=== PATIENT | female | born 1970 | race Caucasian/White ===

== ENCOUNTER → 2020-01-10 10:39 | Outpatient (BNVA) | payer OTHER, SELFPAY | PROVIDERS: PCP Nurse Practitioner Family; Visit Provider Surgery | DX: Z01.89 Encounter for other specified special examinations (principal) | CPT/HCPCS: 99211 ==

== ENCOUNTER → 2020-01-17 08:49 | Outpatient (BNVA) | payer OTHER, SELFPAY | PROVIDERS: PCP Nurse Practitioner Family; Referring Provider Nurse Practitioner Family; Visit Provider Physician Assistant | DX: E66.9 Obesity, unspecified (principal); Z68.33 Body mass index [BMI] 33.0-33.9, adult; Z98.84 Bariatric surgery status | CPT/HCPCS: 99214 ==

== ENCOUNTER 2020-01-18 12:47 | Outpatient (REF) | payer OTHER, SELFPAY ==
[2020-01-18 13:28] LABS: MANUAL DIFF FLAG NO
[2020-01-18 13:35] LABS: Basophils Percent Auto 0.6 % (0-2); Eosinophils Absolute Auto 0.1 X10*3/uL (0.0-0.4); Eosinophils Percent Auto 0.9 % (0-4); Hemoglobin 10.2 g/dl (12.0-16.0); Imm Gran Abs Auto 0.01 X10*3/uL (0.00-0.03); Imm Gran Pct Auto 0.2 % (0.0-0.4); Lymphocytes Absolute Auto 1.5 X10*3/uL (1.2-4.9); Lymphocytes Percent Auto 22.6 % (20-40); Mean Corpuscular HGB Conc 30.9 g/dl (31.0-35.0); Mean Corpuscular Hemoglobin 27.1 pg (27.0-33.0); Mean Corpuscular Volume 87.8 fL (80-98); Mean Platelet Volume 10.8 fL (9.4-12.3); Monocytes Absolute Auto 0.4 X10*3/uL (0.1-1.2); Monocytes Percent Auto 6.5 % (2-11); Neutrophils Absolute Auto 4.6 X10*3/uL (2.0-8.3); Neutrophils Percent Auto 69.2 % (45-73); Platelet Count 299 X10*3/uL (160-400); Red Blood Count 3.76 X10*6/uL (4.20-5.50); Red Cell Distribution Width 14.1 % (11.0-16.0); White Blood Count 6.6 X10*3/uL (4.8-10.8)
[2020-01-18 14:02] LABS: C Reactive Protein 0.13 mg/dL (< or = 0.50); Cholesterol 200 mg/dL; HDL Cholesterol 55 mg/dL; Iron 53 mcg/dL (30-160); LDL Cholesterol Calculated 128 mg/dl; Percent Iron Saturation 13 % (15-50); Total Iron Binding Capacity 393 mcg/dL (228-428); Triglycerides 88 mg/dL; Unsaturated Iron Binding 340 ug/dL
[2020-01-18 14:17] LABS: Ferritin 6 ng/mL (10-250); TSH reflex Free T4 1.34 mIU/mL (0.32-4.0); Vitamin D 25-OH Total 24.6 ng/mL (>30)
[2020-01-18 14:23] LABS: Estimated Average Glucose 108 mg/dL; Hemoglobin A1c % 5.4 %
[2020-01-18 16:12] LABS: Folate 13.2 ng/mL (> or = 4.0); Vitamin B12 295 pg/mL (200-900)
[2020-01-20 15:26] LABS: Zinc 52 mcg/dL (60-130)
[2020-01-22 12:42] LABS: Insulin Level Total 12.4 uIU/mL
[2020-01-22 14:41] LABS: Vitamin B1 15 nmol/L (8-30)
[2020-01-23 12:06] LABS: Vitamin A 46 mcg/dL (38-98)
== END 2020-01-18 12:48 | disposition home or self-care (01) ==
LOC: HO.LAB 12:47
PROVIDERS: PCP Nurse Practitioner Family; Visit Provider Physician Assistant
DX: E66.9 Obesity, unspecified (principal); Z98.84 Bariatric surgery status
CPT/HCPCS: 36415; 80061; 82306; 82607; 82728; 82746; 83036; 83525; 83540; 84425; 84443; 84590; 84630; 85025; 86140

== ENCOUNTER → 2020-01-31 08:29 | Outpatient (BNVA) | payer OTHER, SELFPAY | PROVIDERS: PCP Nurse Practitioner Family; Visit Provider Physician Assistant | DX: E66.9 Obesity, unspecified (principal); Z68.31 Body mass index [BMI] 31.0-31.9, adult; Z98.84 Bariatric surgery status | CPT/HCPCS: 99212 ==

== ENCOUNTER → 2020-03-08 08:38 | Outpatient (BNVA) | payer OTHER, SELFPAY | PROVIDERS: PCP Nurse Practitioner Family; Referring Provider Nurse Practitioner Family; Visit Provider Physician Assistant | DX: Z76.89 Persons encountering health services in other specified circumstances (principal) ==

== ENCOUNTER 2020-03-15 14:47 | Outpatient (REF) | payer OTHER, SELFPAY ==
--- NOTE | 2020-03-15 14:50 | XR_ITS ---
EXAMINATION: XR FOOT, LEFT CLINICAL INFORMATION: Pain in left foot. COMPARISON: None TECHNIQUE: AP, lateral, and oblique views of the left foot. FINDINGS: Bones have normal alignment throughout the foot. No fracture or subluxation. At the great toe metatarsophalangeal joint, there is mild narrowing of the joint space and minimal osteophyte formation. No erosions or periostitis. XR/XR foot LT min 3V IMPRESSION: * No evidence of metatarsal stress fracture. 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
== END 2020-03-15 14:48 | disposition home or self-care (01) ==
LOC: HO.HMGCX 14:47
PROVIDERS: PCP Nurse Practitioner Family; Visit Provider Hospitalist
DX: M79.672 Pain in left foot (principal)
CPT/HCPCS: 73630

== ENCOUNTER → 2020-03-19 08:09 | Outpatient (BNVA) | payer OTHER, SELFPAY | PROVIDERS: PCP Nurse Practitioner Family; Visit Provider Dietitian, Registered | DX: Z76.89 Persons encountering health services in other specified circumstances (principal) ==

== ENCOUNTER → 2020-04-02 08:18 | Outpatient (BNVA) | payer OTHER, SELFPAY | PROVIDERS: PCP Nurse Practitioner Family; Visit Provider Dietitian, Registered | DX: Z76.89 Persons encountering health services in other specified circumstances (principal) ==

== ENCOUNTER 2020-05-08 16:45 | Outpatient (REF) | payer OTHER, SELFPAY ==
--- NOTE | ~2020-05-08 | MR_ITS ---
EXAMINATION: MR LUMBAR SPINE WITHOUT CONTRAST CLINICAL INFORMATION: Radiculopathy. Left lower extremity pain and weakness. COMPARISON: CT scan of the abdomen and pelvis 12/03/2018. TECHNIQUE: MRI of the lumbar spine was obtained using routine sequences without contrast. FINDINGS: There are type I degenerative endplate changes at L3-L4. Type II degenerative endplate changes at L4-L5 and to a lesser extent at L5-S1. There is loss of intervertebral disc height and T2 signal intensity at multiple levels related to disc degeneration. That tip of the conus medullaris is located at L2. No mass effect on the conus. Visualized distal cord signal intensity is normal. At L1-L2 there is a slightly bulging disc. No canal stenosis. No mass effect on the traversing or foraminal nerve roots. At L2-L3 there is a slightly bulging disc. No canal stenosis. No mass effect on the traversing or foraminal nerve roots. At L3-L4 there is a diffusely bulging disc. Bilateral facet degenerative change. No canal stenosis. No mass effect on the traversing or foraminal nerve roots. At L4-L5 there is a slightly bulging disc. No canal stenosis. No mass effect on traversing or foraminal nerve roots. At L5-S1 there is a shallow right subarticular protrusion superimposed upon a bulging disc. Bilateral facet degenerative change. No canal stenosis. There is subtle abutment on the right traversing S1 nerve roots. No foraminal nerve root compression. Limited visualization of the retroperitoneal anatomy reveals no abnormal finding. Psoas and paraspinal muscle groups are symmetric. MR/MR lumbar spine wo con IMPRESSION: Multilevel degenerative spondylosis of the lumbar spine. A shallow right subarticular protrusion at L5-S1 causes subtle abutment on the right traversing S1 nerve roots. Otherwise no substantial mass effect on traversing or foraminal nerve roots elsewhere within the lumbar spine. No canal stenosis.
== END 2020-05-08 16:46 | disposition home or self-care (01) ==
LOC: HO.MRI 16:45
PROVIDERS: Visit Provider Nurse Practitioner Family
DX: M54.16 Radiculopathy, lumbar region (principal)
CPT/HCPCS: 72148

== ENCOUNTER 2020-08-08 11:58 | Outpatient (REF) | payer OTHER, SELFPAY | END 2020-08-08 11:59 | disposition home or self-care (01) | LOC: HO.LAB 11:58 | PROVIDERS: Visit Provider Nurse Practitioner Family | DX: Z20.822 Contact with and (suspected) exposure to COVID-19 (principal); J02.9 Acute pharyngitis, unspecified | CPT/HCPCS: 87071; 87880; U0003; U0005 ==

== ENCOUNTER 2020-08-13 11:06 | Outpatient (REF) | payer OTHER, SELFPAY ==
[2020-08-14 07:52] LABS: SARS COV2 IgG Negative (Negative)
== END 2020-08-13 11:07 | disposition home or self-care (01) ==
LOC: HO.HMGCLDS 11:06
PROVIDERS: Nurse Practitioner Family; PCP Nurse Practitioner Family; Visit Provider Nurse Practitioner Family
DX: J36 Peritonsillar abscess (principal); J02.9 Acute pharyngitis, unspecified
CPT/HCPCS: 36415; 86769

== ENCOUNTER → 2020-08-27 11:06 | Outpatient (BNVA) | payer OTHER, SELFPAY | PROVIDERS: Visit Provider Obstetrics & Gynecology ==

== ENCOUNTER 2020-09-30 11:01 | Outpatient (REF) | payer OTHER, SELFPAY ==
--- NOTE | ~2020-09-30 | MM_ITS ---
EXAMINATION: MM SCREENING DIGITAL BREAST TOMOSYNTHESIS, BILATERAL CLINICAL INFORMATION: Screening. Asymptomatic. The lifetime risk of breast cancer based on the Tyrer-Cuzick Model is 8.7%. COMPARISON: Mammography: 07/18/2018 and studies dating back to 12/19/2015 TECHNIQUE: Digital breast tomosynthesis is performed in both the craniocaudal and mediolateral oblique views along with computer-aided detection (CAD). Synthesized 2-D images are generated from the tomosynthesis. FINDINGS: The breasts are heterogeneously dense, which may obscure small masses (ACR BI-RADS breast composition Category c). No new abnormal dominant mass or suspicious grouping of microcalcifications identified. About the inferior aspect of the left breast, there appears to be some skin thickening which may be postoperative in nature or related to inflammatory process. Clinical correlation is suggested. MM/MM tomosynthesis screening BI IMPRESSION: No abnormal dominant mass or suspicious grouping of microcalcifications. There appears to be some skin thickening about the inferior aspect of the left breast for which clinical correlation is suggested. ASSESSMENT: BI-RADS 2: Benign. RECOMMENDATION: Yearly mammography. Clinical correlation of question left skin thickening inferiorly. This patient's information was entered into a reminder system with a target due date for their next mammogram.
== END 2020-09-30 11:02 | disposition home or self-care (01) ==
LOC: HO.MAMMO 11:01
PROVIDERS: Visit Provider Obstetrics & Gynecology
DX: Z12.31 Encounter for screening mammogram for malignant neoplasm of breast (principal)
CPT/HCPCS: 77063; 77067

== ENCOUNTER 2020-10-19 19:50 | Emergency (ER) | payer OTHER, SELFPAY ==
[2020-10-19 20:02] VITALS: BP 139/71; PULSE 87; RESP 16; TEMP 37.1; O2SAT 97; BMI 35.4
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
[2020-10-19] MEDS: Famotidine/PF 20 MG/2 ML VIAL IVPUSH (20:15)
[2020-10-19] MEDS: methylPREDNISolone Sod Succ 125 MG/2 ML VIAL IVPUSH (20:15)
[2020-10-19] MEDS: diphenhydrAMINE HCL 50 MG/ML VIAL IVPUSH (20:15)
[2020-10-19] MEDS: 0.9 % Sodium Chloride 1,000 ML 999 ML IVCONT (20:17)
[2020-10-19] MEDS: Ketorolac Tromethamine 15 MG/ML VIAL IVPUSH (20:26)
[2020-10-19] MEDS: LORazepam 2 MG/ML VIAL 0.5 MG IVPUSH (21:13)
--- NOTE | 2020-10-19 21:14 | PC.NURSE ---
This RN to bedside to reassess pt. Pt restless on stretcher, reports feeling restless and states it's like I'm having a panic attack. This RN informs pt that this may be caused by the benadryl, this RN notified Soumya ASHRAF who ordered ativan IVP for pt. Pt medicated per JUN. Pt tolerating meds well
[2020-10-19 21:17] VITALS: BP 139/71; PULSE 66; RESP 17; O2SAT 100
[2020-10-19 22:53] VITALS: BP 140/77; PULSE 69; RESP 13; O2SAT 99
[2020-10-20 00:42] VITALS: BP 129/75; PULSE 73; RESP 14; O2SAT 98
--- NOTE | 2020-10-20 00:43 | PC.NURSE ---
pt speaking in complete clear sentences, maintaining airway. Pt requests update from provider on dispo, states my chest feels better! I don't feel so tight Provider to be made aware
== END 2020-10-20 01:25 | disposition home or self-care (01) ==
PROVIDERS: Emergency Provider Internal Medicine; PCP Nurse Practitioner Family
DX: T78.40XA Allergy, unspecified, initial encounter (principal); X58.XXXA Exposure to other specified factors, initial encounter; Z91.013 Allergy to seafood
CPT/HCPCS: 96361; 96374; 96375; 99284; J1200; J1885; J2060; J2930

== ENCOUNTER 2020-12-14 07:52 | Outpatient (REF) | payer OTHER, SELFPAY ==
[2020-12-14 09:09] LABS: Alanine Aminotransferase 13 U/L (0-31); Albumin Level 3.6 g/dL (3.5-5.0); Alkaline Phosphatase 57 U/L (39-117); Anion Gap 9 (12-20); Aspartate Amino Transferase 18 U/L (5-31); Bilirubin Total 0.4 mg/dL (0.0-1.0); Blood Urea Nitrogen 9 mg/dL (9-16); Calcium 8.9 mg/dL (8.4-10.2); Carbon Dioxide 26 mmol/L (22-29); Chloride 108 mmol/L (96-108); Cholesterol 180 mg/dL; Estimated Glomerular Filt Rate > 60; Glucose Fasting 94 mg/dL (60-99); HDL Cholesterol 50 mg/dL; LDL Cholesterol Calculated 113 mg/dl; Potassium 4.2 mmol/L (3.3-5.1); Sodium 139 mmol/L (135-145); Total Protein 6.1 g/dL (6.5-8.0); Triglycerides 86 mg/dL
[2020-12-14 09:29] LABS: TSH reflex Free T4 0.37 uIU/mL (0.32-4.0)
[2020-12-14 09:47] LABS: Appearance Urine CLEAR; Color Urine YELLOW; Glucose Urine UA NEG (NEG); Leukocyte Esterase Urine NEG (NEG); Nitrite Urine NEG (NEG); UACC Culture Trigger NO; Urine Blood 2+ (NEG); Urine Ketones NEG (NEG); Urine Protein NEG (NEG-TRACE)
[2020-12-14 10:22] LABS: Squamous Epithelial Cell Urine 2+ /LPF; WBC Urine 0 /HPF (0-4)
== END 2020-12-14 07:53 | disposition home or self-care (01) ==
LOC: HO.LAB 07:52
PROVIDERS: PCP Nurse Practitioner Family; Visit Provider Nurse Practitioner Family
DX: Z00.00 Encounter for general adult medical examination without abnormal findings (principal)
CPT/HCPCS: 36415; 80053; 80061; 81001; 84443

== ENCOUNTER 2021-03-26 12:51 | Outpatient (REF) | payer OTHER, SELFPAY | END 2021-03-26 12:52 | disposition home or self-care (01) | LOC: HO.HMGCLDS 12:51 | PROVIDERS: Visit Provider Internal Medicine | DX: Z20.822 Contact with and (suspected) exposure to COVID-19 (principal) | CPT/HCPCS: C9803; U0003; U0005 ==

== ENCOUNTER 2021-05-27 11:06 | Outpatient (REF) | payer OTHER, SELFPAY ==
[2021-05-27 13:51] LABS: Appearance Urine CLEAR; Color Urine YELLOW; Glucose Urine UA NEG (NEG); Leukocyte Esterase Urine NEG (NEG); Nitrite Urine NEG (NEG); Specific Gravity - Urine 1.025 (1.005-1.025); Urine Blood NEG (NEG); Urine Ketones NEG (NEG); Urine Protein NEG (NEG-TRACE)
[2021-05-27 13:54] LABS: Hematocrit 39.6 % (37.0-47.0); Hemoglobin 12.8 g/dl (12.0-16.0); Mean Corpuscular HGB Conc 32.3 g/dl (31.0-35.0); Mean Corpuscular Volume 92.7 fL (80.0-98.0); Mean Platelet Volume 11.2 fL (9.4-12.3); Platelet Count 258 X10*3/uL (160-400); Red Blood Count 4.27 X10*6/uL (4.20-5.50); Red Cell Distribution Width 13.4 % (11.0-16.0); White Blood Count 4.3 X10*3/uL (4.8-10.8)
[2021-05-27 14:04] LABS: Alanine Aminotransferase 15 U/L (0-31); Alkaline Phosphatase 68 U/L (39-117); Anion Gap 10 (12-20); Aspartate Amino Transferase 22 U/L (5-31); Bilirubin Direct < 0.2 mg/dL (0.0-0.5); Bilirubin Total 0.4 mg/dL (0.0-1.0); Blood Urea Nitrogen 11 mg/dL (9-16); Carbon Dioxide 26 mmol/L (22-29); Chloride 104 mmol/L (96-108); Estimated Glomerular Filt Rate > 60; Glucose Random 93 mg/dL (60-115); Potassium 4.2 mmol/L (3.3-5.1); Sodium 136 mmol/L (135-145); Total Protein 7.1 g/dL (6.5-8.0)
[2021-05-27 14:29] LABS: Thyroid Stimulating Hormone 1.95 uIU/mL (0.32-4.0)
[2021-05-27 14:40] LABS: Folate 11.2 ng/mL (> or = 4.0); Vitamin B12 437 pg/mL (200-900)
[2021-05-31 14:24] LABS: Vitamin D 25-OH, D2 <4 ng/mL; Vitamin D 25-OH, D3 28 ng/mL; Vitamin D 25-OH, Total 28 ng/mL (30-100)
== END 2021-05-27 11:07 | disposition home or self-care (01) ==
LOC: HO.HMGCLDS 11:06
PROVIDERS: PCP Nurse Practitioner Family; Visit Provider Internal Medicine
DX: Z00.00 Encounter for general adult medical examination without abnormal findings (principal); R53.83 Other fatigue
CPT/HCPCS: 36415; 80048; 80076; 81003; 82306; 82607; 82746; 84443; 85027

== ENCOUNTER → 2021-06-17 12:14 | Outpatient (BNVA) | payer OTHER, SELFPAY | PROVIDERS: Visit Provider Obstetrics & Gynecology | DX: N76.0 Acute vaginitis (principal); B96.89 Other specified bacterial agents as the cause of diseases classified elsewhere | CPT/HCPCS: Q3014 ==

== ENCOUNTER 2021-07-03 10:26 | Outpatient (REF) | payer OTHER, SELFPAY ==
[2021-07-03 14:03] LABS: MANUAL DIFF FLAG NO
[2021-07-03 14:08] LABS: Basophils Percent Auto 0.5 % (0-2); Eosinophils Absolute Auto 0.3 X10*3/uL (0.0-0.4); Eosinophils Percent Auto 4.9 % (0-4); Hematocrit 37.5 % (37.0-47.0); Hemoglobin 12.5 g/dl (12.0-16.0); Imm Gran Abs Auto 0.02 X10*3/uL (0.00-0.03); Imm Gran Pct Auto 0.3 % (0.0-0.4); Lymphocytes Absolute Auto 1.4 X10*3/uL (1.2-4.9); Lymphocytes Percent Auto 23.5 % (20-40); Mean Corpuscular HGB Conc 33.3 g/dl (31.0-35.0); Mean Corpuscular Hemoglobin 31.5 pg (27.0-33.0); Mean Corpuscular Volume 94.5 fL (80.0-98.0); Mean Platelet Volume 11.3 fL (9.4-12.3); Monocytes Absolute Auto 0.4 X10*3/uL (0.1-1.2); Monocytes Percent Auto 6.4 % (2-11); Neutrophils Absolute Auto 3.9 x10*3/uL (2.0-8.3); Neutrophils Percent Auto 64.4 % (45-73); Platelet Count 248 X10*3/uL (160-400); Red Blood Count 3.97 X10*6/uL (4.20-5.50); Red Cell Distribution Width 13.2 % (11.0-16.0); White Blood Count 6.1 X10*3/uL (4.8-10.8)
[2021-07-03 14:22] LABS: Alanine Aminotransferase 24 U/L (0-31); Albumin Level 3.8 g/dL (3.5-5.0); Alkaline Phosphatase 64 U/L (39-117); Anion Gap 8 (12-20); Aspartate Amino Transferase 20 U/L (5-31); Bilirubin Total 0.6 mg/dL (0.0-1.0); Blood Urea Nitrogen 12 mg/dL (9-16); Calcium 9.1 mg/dL (8.4-10.2); Carbon Dioxide 30 mmol/L (22-29); Chloride 105 mmol/L (96-108); Estimated Glomerular Filt Rate > 60; Glucose Fasting 72 mg/dL (60-99); Sodium 139 mmol/L (135-145); Total Protein 6.9 g/dL (6.5-8.0)
[2021-07-03 14:24] LABS: Appearance Urine CLEAR; Color Urine YELLOW; Glucose Urine UA NEG (NEG); Leukocyte Esterase Urine NEG (NEG); Nitrite Urine NEG (NEG); PH 5.5 (5.0-8.0); Specific Gravity - Urine 1.015 (1.005-1.025); Urine Blood NEG (NEG); Urine Ketones NEG (NEG); Urine Protein NEG (NEG-TRACE)
[2021-07-03 14:43] LABS: Ferritin 24 ng/mL (10-250); TSH reflex Free T4 0.33 uIU/mL (0.32-4.0)
[2021-07-03 14:54] LABS: Folate 10.4 ng/mL (> or = 4.0); Vitamin B12 336 pg/mL (200-900)
[2021-07-04 08:00] LABS: HBsAGNum1 0.18 S/CO (0.00-0.99); HIV AB/AG Nonreactive (Nonreactive); HIV Num 1 0.05 S/CO (0.00-0.99); Hepatitis B Surface Antigen Negative (Negative)
[2021-07-04 08:06] LABS: Syphilis Screen Nonreactive (Nonreactive)
[2021-07-04 08:10] LABS: ~HepC Num1 0.14 S/CO (0.00-0.79); ~Hepatitis C Antibody Nonreactive (Nonreactive)
[2021-07-09 13:47] LABS: Vitamin B6 19.3 ng/mL (2.1-21.7)
== END 2021-07-03 10:27 | disposition home or self-care (01) ==
LOC: HO.HMGCLDS 10:26
PROVIDERS: Obstetrics & Gynecology; PCP Nurse Practitioner Family; Visit Provider Nurse Practitioner Family
DX: Z11.4 Encounter for screening for human immunodeficiency virus [HIV] (principal); R53.83 Other fatigue; M79.10 Myalgia, unspecified site; B96.89 Other specified bacterial agents as the cause of diseases classified elsewhere; N76.0 Acute vaginitis
CPT/HCPCS: 36415; 80053; 81003; 82550; 82607; 82728; 82746; 84207; 84443; 85025; 86780; 86803; 87340; 87389

== ENCOUNTER 2021-09-03 11:42 | Outpatient (REF) | payer OTHER, SELFPAY ==
[2021-09-04 01:54] LABS: CT PCR NOT DETECTED (Not Detect.); NG PCR NOT DETECTED (Not Detect.)
[2021-09-04 11:03] LABS: BV Int Neg Control Negative (Negative); BV Int Pos Control Positive (Positive)
== END 2021-09-03 11:43 | disposition home or self-care (01) ==
LOC: HO.LAB 11:42
PROVIDERS: PCP Nurse Practitioner Family; Visit Provider Obstetrics & Gynecology
DX: Z01.419 Encounter for gynecological examination (general) (routine) without abnormal findings (principal); N93.9 Abnormal uterine and vaginal bleeding, unspecified; F32.A Depression, unspecified; N76.0 Acute vaginitis; B96.89 Other specified bacterial agents as the cause of diseases classified elsewhere
CPT/HCPCS: 87480; 87491; 87510; 87591; 87660

== ENCOUNTER 2021-10-01 10:51 | Outpatient (REF) | payer OTHER, SELFPAY ==
--- NOTE | ~2021-10-01 | MM_ITS ---
EXAMINATION: MM SCREENING DIGITAL BREAST TOMOSYNTHESIS, BILATERAL CLINICAL INFORMATION: Screening. Asymptomatic. The lifetime risk of breast cancer based on the Tyrer-Cuzick Model is 9%. COMPARISON: Mammography: 09/30/2020, 07/18/2018, 07/12/2017 TECHNIQUE: Digital breast tomosynthesis is performed in both the craniocaudal and mediolateral oblique views along with computer-aided detection (CAD). Synthesized 2D images are generated from the tomosynthesis. Additional left CC is provided. FINDINGS: There are scattered areas of fibroglandular density (ACR BI-RADS breast composition Category b). There are no significant masses, abnormal calcifications, or other abnormalities. Parenchymal pattern is similar to prior studies. No developing density. No significant changes. MM/MM tomosynthesis screening BI IMPRESSION: No mammographic evidence of malignancy. ASSESSMENT: BI-RADS 1: Negative RECOMMENDATION: Routine annual mammography screening. This patient's information was entered into a reminder system with a target due date for their next mammogram.
== END 2021-10-01 10:52 | disposition home or self-care (01) ==
LOC: HO.MAMMO 10:51
PROVIDERS: PCP Nurse Practitioner Family; Visit Provider Obstetrics & Gynecology
DX: Z12.31 Encounter for screening mammogram for malignant neoplasm of breast (principal)
CPT/HCPCS: 77063; 77067

== ENCOUNTER 2021-10-01 16:24 | Outpatient (REF) | payer OTHER, SELFPAY ==
[2021-10-01 17:46] LABS: Hematocrit 38.8 % (37.0-47.0); Hemoglobin 12.6 g/dl (12.0-16.0); Mean Corpuscular HGB Conc 32.5 g/dl (31.0-35.0); Mean Corpuscular Hemoglobin 30.6 pg (27.0-33.0); Mean Corpuscular Volume 94.2 fL (80.0-98.0); Platelet Count 269 X10*3/uL (160-400); Red Blood Count 4.12 X10*6/uL (4.20-5.50); Red Cell Distribution Width 12.8 % (11.0-16.0); White Blood Count 6.5 X10*3/uL (4.8-10.8)
[2021-10-01 18:40] LABS: HCG Quantitative 7 mIU/mL; TSH reflex Free T4 3.52 uIU/mL (0.32-4.0)
[2021-10-01 18:48] LABS: Syphilis Screen Nonreactive (Nonreactive)
[2021-10-02 08:54] LABS: HBsAGNum1 0.28 S/CO (0.00-0.99); HIV AB/AG Nonreactive (Nonreactive); HIV Num 1 0.09 S/CO (0.00-0.99); Hepatitis B Surface Antigen Negative (Negative); ~HepC Num1 0.09 S/CO (0.00-0.79); ~Hepatitis C Antibody Nonreactive (Nonreactive)
[2021-10-03 02:17] LABS: Follicle Stimulating Hormone 72.9 mIU/mL; Lutenizing Hormone 37.5 mIU/mL
[2021-10-03 14:42] LABS: Immunoglobulin A 456 mg/dL (47-310)
[2021-10-03 15:36] LABS: Transglutaminase Ab IgG <1.0 U/mL; Transglutaminase IgA <1.0 U/mL
== END 2021-10-01 16:25 | disposition home or self-care (01) ==
LOC: HO.LAB 16:24
PROVIDERS: PCP Nurse Practitioner Family; Referring Provider Nurse Practitioner Family; Visit Provider Obstetrics & Gynecology
DX: Z11.4 Encounter for screening for human immunodeficiency virus [HIV] (principal); R10.9 Unspecified abdominal pain; N93.9 Abnormal uterine and vaginal bleeding, unspecified; B96.89 Other specified bacterial agents as the cause of diseases classified elsewhere; N76.0 Acute vaginitis
CPT/HCPCS: 36415; 82784; 83001; 83002; 84443; 84702; 85027; 86364; 86780; 86803; 87340; 87389

== ENCOUNTER 2021-10-08 14:37 | Outpatient (REF) | payer OTHER, SELFPAY ==
--- NOTE | ~2021-10-08 | US_ITS ---
EXAMINATION: US PELVIS CLINICAL INFORMATION: Dysfunctional uterine bleeding. LMP 2 weeks ago. COMPARISON: 03/20/2019 TECHNIQUE: Ultrasound of the pelvis is performed using both transabdominal and transvaginal transducers along with Doppler. Transvaginal imaging is performed due to inadequate visualization transabdominally. FINDINGS: Uterus: The uterus is anteverted and measures 10.2 x 4.8 x 5.4 cm. Uterine echotexture is heterogeneous. The double wall endometrial thickness is 1.1 mm. Endometrium is thickened and heterogeneous. There is a feeding vessel to the endometrium. Adnexa: Both ovaries are visualized. Right ovary measures 3.1 x 2.1 x 1.9 cm. Left ovary measures 2.4 x 1.1 x 1.6 cm. No free fluid in pelvis. US/US pelvic and transvaginal IMPRESSION: Thickened and heterogeneous endometrium with evidence of feeding vessel. Endometrial polyp cannot be excluded. Correlation with direct visualization is advised.
[2021-10-12 17:26] LABS: Calprotectin, Fecal 71 mcg/g
== END 2021-10-08 14:38 | disposition home or self-care (01) ==
LOC: HO.US 14:37
PROVIDERS: Nurse Practitioner Family; Visit Provider Obstetrics & Gynecology
DX: R10.9 Unspecified abdominal pain (principal); R19.7 Diarrhea, unspecified; N93.9 Abnormal uterine and vaginal bleeding, unspecified
CPT/HCPCS: 76830; 76856; 83993

== ENCOUNTER 2021-12-05 07:57 | Day surgery (SDC) | payer OTHER, SELFPAY ==
[2021-12-01 14:17] VITALS: BMI 36.9
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
[2021-12-05] VITALS (7 sets, daily range): BP systolic 107–134; BP diastolic 50–89; PULSE 48–70; RESP 16; TEMP 36.1–36.5; O2SAT 100; BMI 35.7
[2021-12-05 09:12] LABS: UPreg QC Valid YES; Urine Pregnancy NEGATIVE (NEGATIVE)
[2021-12-05] MEDS: Lactated Ringers 1,000 ML 100 ML IVCONT (09:13)
--- NOTE | 2021-12-05 09:17 | MHC.SHP ---
Pre-Procedural Eval Section A Date of Service: 12/05/21 The patient is an INPATIENT: No Changes since office visit: No Cold of Flu in the past 2 weeks, No New Medical Problems, No Changes in Medication and No Patient answered all questions The History & Physical has been completed within 30 days and I have reviewed it.: Yes Section B Chief Complaint: Abnormal uterine and vaginal bleeding, Allergies: Allergies Allergy/AdvReac Type Severity Reaction Status Date / Time adhesive Allergy Intermediate Rash Verified 12/01/21 14:11 amoxicillin [AMOXICILLIN] Allergy Intermediate JOINT Verified 10/01/21 15:20 PAIN, Severe joint pain shellfish derived Allergy Intermediate difficulty Verified 12/01/21 14:11 breathing/itching/rash penicillin G [PENICILLIN G] AdvReac Intermediate JOINT PAIN Verified 10/01/21 15:20 Plan Diagnosis/Plan: Unchanged I have reviewed the history and physical and performed a pertinent physical examination on my patient. No changes have occurred unless specified.
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
--- NOTE | 2021-12-05 10:25 | P.BOP_ITS ---
Brief Operative Note Date of Service: 12/05/21 Pre-op diagnosis: Abnormal uterine bleeding Post-op diagnosis: same (Normal endometrial cavity no evidence of pathology) Procedure: Hysteroscopy D&C Surgeon: Sumeet Sullivan MD Anesthesia: GLMA Was an Regional Vice President Surgical Sales used for this Procedure?: No Estimated blood loss (mL): 0 Pathology: other (Endometrial Scrapping.) Condition: stable Disposition: PACU
--- NOTE | 2021-12-05 10:26 | P.OP_ITS ---
Operative Note Operative Note Date of Service: 12/05/21 Narrative: Preop Diagnosis: Abnormal uterine bleeding Operation: Diagnostic Hysteroscopy, Dilataion & Curettage Post Op Diagnosis: Endometrial Polyp QBL: Minimal Anesthesia: GLMA Surgeon: Sumeet Sullivan MD Curing Room Supervisor: None Complication: None Pathology: Endometrial Scrapings, Endometrial polyp Procedure: The patient was put in the dorsal lithotomy position, scrubbed, and draped in the usual manner. A sterile speculum was inserted in the patient's vagina. The anterior lip of the cervix was grasped with a single tooth tenaculum. The cervix was dilated up to 5 mm, then the scope was inserted in the patient's uterus. Inspection revealed normal endometrial cavity with no evidence of any pathology. Sharp curettings was carried on afterwards with moderate amount of tissues retrieved. At the end of the procedure, all instruments were taken out of the patient uterine and vaginal cavity. The single tooth tenaculum was removed and homeostasis was assured using pressure,. The patient tolerated the procedure well and was transferred to the PACU in a stable condition.
[2021-12-05] MEDS: Acetaminophen 325 MG TABLET 650 MG PO (11:24)
== END 2021-12-05 11:57 | disposition home or self-care (01) ==
PROVIDERS: PCP Nurse Practitioner Family; Visit Provider Obstetrics & Gynecology
PROC: 0UDB8ZZ Extraction of Endometrium, Via Natural or Artificial Opening Endoscopic (ICD-10-PCS; CPT 58558; principal; 2021-12-05 10:00)
DX: N93.9 Abnormal uterine and vaginal bleeding, unspecified (principal); N85.4 Malposition of uterus; Z98.51 Tubal ligation status; M54.2 Cervicalgia; G62.9 Polyneuropathy, unspecified; Z79.899 Other long term (current) drug therapy; Z88.0 Allergy status to penicillin; Z88.1 Allergy status to other antibiotic agents; Z98.84 Bariatric surgery status; Z98.890 Other specified postprocedural states
CPT/HCPCS: 58558; 81025; 88305; J1100; J2250; J2405; J3010

== ENCOUNTER 2021-12-20 14:39 | Outpatient (REF) | payer OTHER, SELFPAY ==
[2021-12-20 16:23] LABS: MANUAL DIFF FLAG NO
[2021-12-20 16:26] LABS: Basophils Absolute Auto 0.1 X10*3/uL (0.0-0.2); Basophils Percent Auto 0.7 % (0-2); Eosinophils Absolute Auto 0.1 X10*3/uL (0.0-0.4); Eosinophils Percent Auto 1.1 % (0-4); Hematocrit 37.9 % (37.0-47.0); Hemoglobin 12.5 g/dl (12.0-16.0); Imm Gran Abs Auto 0.03 X10*3/uL (0.00-0.03); Imm Gran Pct Auto 0.4 % (0.0-0.4); Lymphocytes Absolute Auto 1.9 X10*3/uL (1.2-4.9); Lymphocytes Percent Auto 22.4 % (20-40); Mean Corpuscular Hemoglobin 31.4 pg (27.0-33.0); Mean Corpuscular Volume 95.2 fL (80.0-98.0); Mean Platelet Volume 11.4 fL (9.4-12.3); Monocytes Absolute Auto 0.6 X10*3/uL (0.1-1.2); Monocytes Percent Auto 6.7 % (2-11); Neutrophils Absolute Auto 5.8 x10*3/uL (2.0-8.3); Neutrophils Percent Auto 68.7 % (45-73); Platelet Count 237 X10*3/uL (160-400); Red Blood Count 3.98 X10*6/uL (4.20-5.50); Red Cell Distribution Width 12.6 % (11.0-16.0); White Blood Count 8.4 X10*3/uL (4.8-10.8)
[2021-12-20 16:40] LABS: C Reactive Protein 0.31 mg/dL (< or = 0.50); Rheumatoid Factor < 15.0 IU/mL (<15.0)
[2021-12-20 17:42] LABS: Erythrocyte Sedimentation Rate 17 MM/HR (0-20)
[2021-12-22 23:21] LABS: Antibody to SS-A Antigen <1.0 NEG AI (<1.0 NEG); Antibody to SS-B Antigen <1.0 NEG AI (<1.0 NEG)
[2021-12-23 13:02] LABS: Cyclic Citrullinated Peptide <16 UNITS
[2021-12-23 16:42] LABS: A. Phagocytphilium DNA,RT-PCR NOT DETECTED (NOT DETECTED); Babesia Microti DNA, RT-PCR NOT DETECTED (NOT DETECTED); Borrelia Miyamotoi,DNA RT-PCR NOT DETECTED (NOT DETECTED); E.Chaffeensis DNA RT-PCR NOT DETECTED (NOT DETECTED); Lyme(Borrelia ssp)DNA RT-PCR NOT DETECTED (NOT DETECTED)
[2021-12-24 13:43] LABS: Source-Tick borne disease BLOOD
[2021-12-24 16:56] LABS: CK-BB None Detected (None Detected); CK-MB 0 % (<5); CK-MM 100 % (95-100); Creatine Kinase,Total,Serum 121 U/L (29-143)
[2021-12-25 16:42] LABS: Anti Nuclear Antibody Screen NEGATIVE (NEGATIVE)
[2022-01-03 11:07] LABS: DNAds, Crithidia Antibody Negative (Negative)
== END 2021-12-20 14:40 | disposition home or self-care (01) ==
LOC: HO.HMGCLDS 14:39
PROVIDERS: PCP Nurse Practitioner Family; Visit Provider Nurse Practitioner Family
DX: R52 Pain, unspecified (principal)
CPT/HCPCS: 36415; 82552; 85025; 85652; 86038; 86039; 86140; 86200; 86235; 86255; 86431; 87798; 87801

== ENCOUNTER 2021-12-23 14:20 | Outpatient (REF) | payer OTHER, SELFPAY ==
[2021-12-23 16:46] LABS: HCG Quantitative < 2 mIU/mL
== END 2021-12-23 14:21 | disposition home or self-care (01) ==
LOC: HO.LAB 14:20
PROVIDERS: PCP Nurse Practitioner Family; Visit Provider Obstetrics & Gynecology
DX: N93.9 Abnormal uterine and vaginal bleeding, unspecified (principal)
CPT/HCPCS: 36415; 84702; 99212

== ENCOUNTER 2022-01-29 10:02 | Outpatient (REF) | payer OTHER, SELFPAY ==
--- NOTE | ~2022-01-29 | XR_ITS ---
EXAMINATION: X-RAY BILATERAL KNEES CLINICAL INFORMATION: Pain COMPARISON: Right knee 08/09/2018. Left knee 01/12/2017. TECHNIQUE: Bilateral knees each 2 views. FINDINGS: Right knee: Mild medial compartment arthritis. Patellar spurring. No fracture or dislocation. No effusion. Left knee: Mild medial compartment arthritis. No fracture or dislocation. No significant effusion. Marginal patellar spurring. XR/XR knee RT 2V IMPRESSION: Mild medial compartment arthritis bilaterally.
--- NOTE | ~2022-01-29 | XR_ITS ---
EXAMINATION: X-RAY BILATERAL KNEES CLINICAL INFORMATION: Pain COMPARISON: Right knee 08/09/2018. Left knee 01/12/2017. TECHNIQUE: Bilateral knees each 2 views. FINDINGS: Right knee: Mild medial compartment arthritis. Patellar spurring. No fracture or dislocation. No effusion. Left knee: Mild medial compartment arthritis. No fracture or dislocation. No significant effusion. Marginal patellar spurring. XR/XR knee LT 2V IMPRESSION: Mild medial compartment arthritis bilaterally.
[2022-01-29 13:02] LABS: Influenza A PCR NEGATIVE (Negative); Influenza B PCR NEGATIVE (Negative); Resp Syncy Virus RNA Qual PCR NEGATIVE (Negative); SARS COV2 PCR INHOUSE NEGATIVE (Negative)
== END 2022-01-29 10:03 | disposition home or self-care (01) ==
LOC: HO.HMGCX 10:02
PROVIDERS: Internal Medicine; PCP Nurse Practitioner Family; Visit Provider Nurse Practitioner Family
DX: M25.561 Pain in right knee (principal); M25.562 Pain in left knee; Z20.822 Contact with and (suspected) exposure to COVID-19; R09.89 Other specified symptoms and signs involving the circulatory and respiratory systems
CPT/HCPCS: 0241U; 73560

== ENCOUNTER 2022-02-06 12:28 | Outpatient (REF) | payer OTHER, SELFPAY ==
--- NOTE | ~2022-02-06 | XR_ITS ---
EXAMINATION: XR CHEST CLINICAL INFORMATION: Cough COMPARISON: Previous chest x-ray most recent March 2016 TECHNIQUE: 2 views of the chest were obtained. FINDINGS: No significant abnormality is noted involving the heart, lungs, mediastinum, bony thorax or soft tissues. Postsurgical changes to the cervical spine. Degenerative changes of the thoracic spine. Postsurgical changes under the left hemidiaphragm. XR/XR chest 2V IMPRESSION: No evidence for acute disease in the chest.
== END 2022-02-06 12:29 | disposition home or self-care (01) ==
LOC: HO.HMGCX 12:28
PROVIDERS: PCP Nurse Practitioner Family; Visit Provider Internal Medicine
DX: R06.2 Wheezing (principal); R05.9 Cough, unspecified; M79.10 Myalgia, unspecified site
CPT/HCPCS: 71046

== ENCOUNTER 2022-02-16 14:41 | Outpatient (REF) | payer OTHER, MEDICAID, SELFPAY ==
[2022-02-16 16:26] LABS: MANUAL DIFF FLAG NO
[2022-02-16 16:33] LABS: Basophils Absolute Auto 0.1 X10*3/uL (0.0-0.2); Basophils Percent Auto 0.8 % (0-2); Eosinophils Absolute Auto 0.1 X10*3/uL (0.0-0.4); Eosinophils Percent Auto 1.8 % (0-4); Hematocrit 38.9 % (37.0-47.0); Hemoglobin 12.7 g/dl (12.0-16.0); Imm Gran Abs Auto 0.02 X10*3/uL (0.00-0.03); Imm Gran Pct Auto 0.3 % (0.0-0.4); Lymphocytes Absolute Auto 2.2 X10*3/uL (1.2-4.9); Mean Corpuscular HGB Conc 32.6 g/dl (31.0-35.0); Mean Corpuscular Hemoglobin 30.8 pg (27.0-33.0); Mean Corpuscular Volume 94.4 fL (80.0-98.0); Mean Platelet Volume 10.6 fL (9.4-12.3); Monocytes Absolute Auto 0.4 X10*3/uL (0.1-1.2); Monocytes Percent Auto 5.6 % (2-11); Neutrophils Absolute Auto 4.5 x10*3/uL (2.0-8.3); Neutrophils Percent Auto 61.5 % (45-73); Platelet Count 262 X10*3/uL (160-400); Red Blood Count 4.12 X10*6/uL (4.20-5.50); Red Cell Distribution Width 12.2 % (11.0-16.0); White Blood Count 7.3 X10*3/uL (4.8-10.8)
[2022-02-16 17:06] LABS: Alanine Aminotransferase 19 U/L (0-31); Albumin Level 4.1 g/dL (3.5-5.0); Alkaline Phosphatase 66 U/L (39-117); Anion Gap 14 (12-20); Aspartate Amino Transferase 20 U/L (5-31); Bilirubin Total 0.3 mg/dL (0.0-1.0); Blood Urea Nitrogen 13 mg/dL (9-16); C Reactive Protein 0.17 mg/dL (< or = 0.50); Calcium 9.6 mg/dL (8.4-10.2); Carbon Dioxide 26 mmol/L (22-29); Chloride 103 mmol/L (96-108); Estimated Glomerular Filt Rate > 60; Glucose Random 87 mg/dL (60-115); Potassium 3.8 mmol/L (3.3-5.1); Rheumatoid Factor < 15.0 IU/mL (<15.0); Sodium 139 mmol/L (135-145); Total Protein 7.1 g/dL (6.5-8.0); Uric Acid 5.5 mg/dL (2.4-5.7)
[2022-02-16 17:22] LABS: TSH reflex Free T4 0.97 uIU/mL (0.32-4.0)
[2022-02-16 17:39] LABS: Appearance Urine Clear; Color Urine Yellow; Glucose Urine UA Negative (Negative); Leukocyte Esterase Urine Negative (Negative); Nitrite Urine Negative (Negative); PH 5.5 (5.0-9.0); Specific Gravity - Urine >= 1.030 (1.005-1.025); Urine Blood Negative (Negative); Urine Ketones Negative (Negative); Urine Protein Negative (Neg-Trace)
[2022-02-16 17:46] LABS: Erythrocyte Sedimentation Rate 18 MM/HR (0-20)
[2022-02-17 11:52] LABS: Anti Nuclear Antibody Screen NEGATIVE (NEGATIVE)
[2022-02-17 14:32] LABS: Cyclic Citrullinated Peptide <16 UNITS
[2022-02-18 03:06] LABS: A. Phagocytphilium DNA,RT-PCR NOT DETECTED (NOT DETECTED); Babesia Microti DNA, RT-PCR NOT DETECTED (NOT DETECTED); Borrelia Miyamotoi,DNA RT-PCR NOT DETECTED (NOT DETECTED); E.Chaffeensis DNA RT-PCR NOT DETECTED (NOT DETECTED); Lyme(Borrelia ssp)DNA RT-PCR NOT DETECTED (NOT DETECTED)
[2022-02-18 05:36] LABS: Antibody to SS-A Antigen <1.0 NEG AI (<1.0 NEG); Antibody to SS-B Antigen <1.0 NEG AI (<1.0 NEG)
[2022-02-19 15:02] LABS: DNAds, Crithidia Antibody Negative (Negative)
[2022-02-21 17:42] LABS: CK-BB None Detected (None Detected); CK-MB 0 % (<5); CK-MM 100 % (95-100); Creatine Kinase,Total,Serum 75 U/L (29-143)
== END 2022-02-16 14:42 | disposition home or self-care (01) ==
LOC: HO.HMGCLDS 14:41
PROVIDERS: PCP Nurse Practitioner Family; Visit Provider Nurse Practitioner Family
DX: M79.7 Fibromyalgia (principal); R52 Pain, unspecified
CPT/HCPCS: 36415; 80053; 81003; 82552; 84443; 84550; 85025; 85652; 86038; 86039; 86140; 86200; 86235; 86255; 86431; 87798; 87801

== ENCOUNTER 2022-03-04 09:38 | Day surgery (SDC) | payer OTHER, MEDICAID, SELFPAY ==
[2022-02-24 14:53] VITALS: BMI 36.2
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
[2022-03-04 09:47] VITALS: BP 117/55; PULSE 86; RESP 17; TEMP 36.6; O2SAT 96
[2022-03-04] MEDS: Lactated Ringers 1,000 ML 100 ML IVCONT (10:14)
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
--- NOTE | 2022-03-04 10:36 | W.PM.OPN ---
Operative Note Operative Note Date of Service: 03/04/22 Narrative: Operative Information Procedure Description: EGD, Colonoscopy Indication: abdominal pain Anesthesia: MAC FLEXIBLE TRANSORAL UPPER GASTROINTESTINAL ENDOSCOPY AND COLONOSCOPY PROCEDURE NOTE UPPER ENDOSCOPY Consent: Indications for the procedure and potential complications of bleeding, perforation, reaction to medications and missed diagnosis were discussed with the patient and informed consent was obtained. Instrument: Olympus GIF H 190 J mid size upper endoscope Monitoring: Vital signs and clinical assessment, continuous EKG monitoring, Pulse oximetry, Carbon Dioxide monitoring and blood pressure monitoring were done throughout the procedure. Procedure: The patient was placed in the left lateral decubitis position and pre-procedure medications were administered and a bite block was placed. The endoscope was inserted into the mouth and advanced under direct vision to the third part of duodenum. A careful inspection was made as the upper endoscope was withdrawn including a retroflexed examination of the proximal stomach; Findings and interventions are described below. Findings: Larynx:normal Esophagus: GE junction at 37 cm, diaphragm hiatus at 37 cm, bx taken from GEJ due to bogginess and erythema and random esophagus Stomach: Streaky gastritis. Biopsies were obtained. Grade 2 flap valve on retroflexed examination of the cardia. s/p gastric sleeve anatomy Duodenum: Normal bulb and descending duodenum, bx taken Intervention: Biopsies as noted above COLONOSCOPY Instrument: Olympus variable stiffness pediatric scope 190L Colonoscopy Monitoring: Vital signs and clinical assessment, continuous EKG monitoring, Pulse oximetry, Carbon Dioxide monitoring and blood pressure monitoring were done throughout the procedure. Colon withdrawal time was 10 minutes. Procedure: The patient was placed in the left lateral decubitis position and pre-procedure medications were administered. After a digital rectal examination of the ano-rectum, the video colonoscope was inserted into the rectum and advanced through the colon to the cecum/TI. The colonoscope was slowly withdrawn in a retrograde panoramic fashion and the colon mucosa was carefully examined including a retroflexed view of the rectum. Findings and interventions are described below. Procedure Difficulty:easy Findings: Terminal Ileum-erosive ileitis, bx taken Random bx taken from right colon, left and rectum Cecum:normal Ascending Colon: normal Transverse Colon -normal Descending Colon:normal Sigmoid Colon: normal Rectum: Retroflexion with small internal hemorrhoids, grade I with skin tags Anorectum - normal Colon preparation: Edwards Bowel Preparation Scale Right colon; 2 Transverse colon: 2 Left colon; 2 (0 = Unprepared colon segment with mucosa not seen due to solid stool that cannot be cleared. 1 = Portion of mucosa of the colon segment seen, but other areas of the colon segment not well seen due to staining, residual stool and/or opaque liquid. 2 = Minor amount of residual staining, small fragments of stool and/or opaque liquid, but mucosa of colon segment seen well. 3 = Entire mucosa of colon segment seen well with no residual staining, small fragments of stool or opaque liquid) Impression and Post Procedure Diagnosis: Endoscopy Findings: gastritis Colonoscopy Findings: erosive ileitis internal hemorrhoids Plan: Await Pathology results Repeat Colonoscopy in 10 years or earlier if clinically indicated High fiber diet leaflet avoid straining at stool, epsom salts and sitz bath, anusol supps or cream avoid nsaids Ct enterography -will place order Above findings were reviewed with the patient and relevant handouts were provided if indicated.
[2022-03-04 11:28] VITALS: BP 113/72; PULSE 93; RESP 12; TEMP 36.1; O2SAT 98
[2022-03-04 11:43] VITALS: BP 105/64; PULSE 89; RESP 16; TEMP 36.4; O2SAT 98
== END 2022-03-04 12:24 | disposition home or self-care (01) ==
PROVIDERS: PCP Nurse Practitioner Family; Visit Provider Internal Medicine Gastroenterology
PROC: (CPT 45380; principal; 2022-03-04 11:00)
DX: Z12.11 Encounter for screening for malignant neoplasm of colon (principal); K52.89 Other specified noninfective gastroenteritis and colitis; K64.0 First degree hemorrhoids; K64.4 Residual hemorrhoidal skin tags; K59.00 Constipation, unspecified; R19.7 Diarrhea, unspecified; R10.9 Unspecified abdominal pain; K29.50 Unspecified chronic gastritis without bleeding; K20.80 Other esophagitis without bleeding; K44.9 Diaphragmatic hernia without obstruction or gangrene; J45.909 Unspecified asthma, uncomplicated; G62.9 Polyneuropathy, unspecified; E66.9 Obesity, unspecified; E03.9 Hypothyroidism, unspecified; Z68.37 Body mass index [BMI] 37.0-37.9, adult; Z79.899 Other long term (current) drug therapy; Z88.0 Allergy status to penicillin; Z91.040 Latex allergy status; Z98.84 Bariatric surgery status; Z98.890 Other specified postprocedural states; Z90.49 Acquired absence of other specified parts of digestive tract
CPT/HCPCS: 45380; 43239; 88305; 88342; J2250

== ENCOUNTER 2022-03-17 15:04 | Outpatient (REF) | payer OTHER, MEDICAID, SELFPAY ==
--- NOTE | ~2022-03-17 | CT_ITS ---
EXAMINATION: CT ENTEROGRAPHY ABDOMEN AND PELVIS WITH CONTRAST CLINICAL INFORMATION: Periumbilical pain COMPARISON: Previous CT scan of the abdomen and pelvis November 2018 and ultrasound January 2016 TECHNIQUE: Study performed with oral VoLumen (1350 mL) and 480 mL of water to distend the abdomen. The patient was injected with 85 mL Omnipaque 350 intravenous contrast which was administered without adverse effect. Coronal and sagittal reformatted images were obtained at the technologist's workstation. This CT examination was performed using dose optimization techniques as appropriate, variously including the following: *Automated exposure control *Adjustment of mA and/or kV according to patient size (this includes techniques or standardized protocols for targeted exams where dose is matched to indication/reason for exam; i.e. extremities or head) *Use of iterative reconstruction technique DLP: 1410 mGy-cm FINDINGS: GASTROINTESTINAL FINDINGS: Stomach: Well-distended. Postsurgical changes from gastric sleeve. Small intestine: Satisfactorily distended and normal in appearance. Large intestine: Well-distended and normal in appearance. No perirectal changes demonstrated. The appendix is normal. Additional findings: No abnormal enhancement of the vasa recta or significant mesenteric or retroperitoneal lymphadenopathy is seen. No abdominal abscess or fistulous tract demonstrated. ABDOMINAL AND PELVIC CT FINDINGS: Liver, gallbladder, biliary tract: The liver is normal. The gallbladder is been removed. There is no biliary duct dilatation. Pancreas: Normal Spleen: Normal Adrenal glands and kidneys: Normal Ureters and bladder: Normal Lymphovascular structures: Normal Bones: There are degenerative changes of the spine. Stable small sclerotic lesions in the right iliac bone and left femur probably representing bone islands. Lung bases: Normal There are post operative changes to the anterior abdominal wall. No hernia. CT/CT enterography IMPRESSION: Postsurgical change from gastric sleeve procedure. Otherwise unremarkable exam.
[2022-03-17] MEDS: iohexoL 350 MG/ML 100 ML INFUS..BTL 85 ML IV (17:19)
[2022-03-17] MEDS: Sorbitol/Mannit/Xanth Imaging 500 ML LIQUID 1500 ML PO (17:20)
== END 2022-03-17 15:05 | disposition home or self-care (01) ==
LOC: HO.CT 15:04
PROVIDERS: PCP Nurse Practitioner Family; Visit Provider Internal Medicine Gastroenterology
DX: R10.33 Periumbilical pain (principal)
CPT/HCPCS: 74177; Q9967

== ENCOUNTER 2022-04-15 13:58 | Outpatient (REF) | payer OTHER, MEDICAID, SELFPAY ==
[2022-04-15 18:57] LABS: Influenza A PCR POSITIVE (Negative); Influenza B PCR NEGATIVE (Negative); Resp Syncy Virus RNA Qual PCR NEGATIVE (Negative); SARS COV2 PCR INHOUSE NEGATIVE (Negative)
[2022-04-20 16:33] LABS: Arsenic, Blood <3 mcg/L (<23); Lead, Blood <1.0 mcg/dL (<3.5); Mercury, Blood 5 mcg/L (<=10)
== END 2022-04-15 13:59 | disposition home or self-care (01) ==
LOC: HO.HMGCLDS 13:58
PROVIDERS: Internal Medicine; PCP Nurse Practitioner Family; Visit Provider Nurse Practitioner Family
DX: R43.9 Unspecified disturbances of smell and taste (principal); Z77.018 Contact with and (suspected) exposure to other hazardous metals; Z20.822 Contact with and (suspected) exposure to COVID-19
CPT/HCPCS: 0241U; 36415; 82175; 83655; 83825

== ENCOUNTER → 2022-04-29 08:12 | Outpatient (BNVA) | payer OTHER, MEDICAID, SELFPAY | PROVIDERS: PCP Nurse Practitioner Family; Visit Provider Student in an Organized Health Care Education/Training Program | DX: Z13.89 Encounter for screening for other disorder (principal) ==

== ENCOUNTER 2022-05-21 10:11 | Outpatient (REF) | payer OTHER, MEDICAID, SELFPAY ==
[2022-05-21 11:19] LABS: MANUAL DIFF FLAG NO
[2022-05-21 11:30] LABS: Basophils Absolute Auto 0.1 X10*3/uL (0.0-0.2); Basophils Percent Auto 0.9 % (0-2); Eosinophils Absolute Auto 0.1 X10*3/uL (0.0-0.4); Eosinophils Percent Auto 1.5 % (0-4); Hematocrit 39.4 % (37.0-47.0); Hemoglobin 12.9 g/dl (12.0-16.0); Imm Gran Abs Auto 0.01 X10*3/uL (0.00-0.03); Imm Gran Pct Auto 0.2 % (0.0-0.4); Lymphocytes Absolute Auto 1.6 X10*3/uL (1.2-4.9); Lymphocytes Percent Auto 29.4 % (20-40); Mean Corpuscular HGB Conc 32.7 g/dl (31.0-35.0); Mean Corpuscular Hemoglobin 30.9 pg (27.0-33.0); Mean Corpuscular Volume 94.5 fL (80.0-98.0); Monocytes Absolute Auto 0.3 X10*3/uL (0.1-1.2); Monocytes Percent Auto 5.8 % (2-11); Neutrophils Absolute Auto 3.3 x10*3/uL (2.0-8.3); Neutrophils Percent Auto 62.2 % (45-73); Platelet Count 266 X10*3/uL (160-400); Red Blood Count 4.17 X10*6/uL (4.20-5.50); Red Cell Distribution Width 12.3 % (11.0-16.0); White Blood Count 5.3 X10*3/uL (4.8-10.8)
[2022-05-21 11:39] LABS: Appearance Urine Clear; Color Urine Yellow; Glucose Urine UA Negative (Negative); Leukocyte Esterase Urine Large (3+) (Negative); Nitrite Urine Negative (Negative); UMIC TRIGGER UACC YES; Urine Blood Negative (Negative); Urine Ketones Negative (Negative); Urine Protein Negative (Neg-Trace)
[2022-05-21 12:19] LABS: Bacteria Urine 1+ (None Seen); Hyaline Casts Urine 0-2 /LPF (0-2); RBC Urine 0-2 /HPF (0-2); UACC Culture Trigger YES; WBC Urine 0-5 /HPF (0-5)
[2022-05-21 12:42] LABS: Alanine Aminotransferase 20 U/L (0-31); Albumin Level 3.9 g/dL (3.5-5.0); Alkaline Phosphatase 68 U/L (39-117); Anion Gap 12 (12-20); Aspartate Amino Transferase 20 U/L (5-31); Bilirubin Total 0.6 mg/dL (0.0-1.0); Blood Urea Nitrogen 15 mg/dL (9-16); Calcium 9.1 mg/dL (8.4-10.2); Carbon Dioxide 27 mmol/L (22-29); Chloride 107 mmol/L (96-108); Cholesterol 221 mg/dL; Estimated Glomerular Filt Rate > 60; Glucose Fasting 85 mg/dL (60-99); HDL Cholesterol 56 mg/dL; Iron 113 mcg/dL (30-160); LDL Cholesterol Calculated 149 mg/dl; Percent Iron Saturation 38 % (15-50); Potassium 4.9 mmol/L (3.3-5.1); Sodium 141 mmol/L (135-145); Total Iron Binding Capacity 298 mcg/dL (228-428); Total Protein 6.8 g/dL (6.5-8.0); Triglycerides 81 mg/dL; Unsaturated Iron Binding 185 ug/dL
[2022-05-21 12:48] LABS: Ferritin 29 ng/mL (10-250); TSH reflex Free T4 0.55 uIU/mL (0.32-4.0)
== END 2022-05-21 10:12 | disposition home or self-care (01) ==
LOC: HO.HMGCLDS 10:11
PROVIDERS: Internal Medicine Gastroenterology; PCP Nurse Practitioner Family; Visit Provider Nurse Practitioner Family
DX: R10.9 Unspecified abdominal pain (principal); R53.83 Other fatigue; M79.7 Fibromyalgia
CPT/HCPCS: 36415; 80053; 80061; 81001; 82728; 83540; 84443; 85025; 87086; 87147

== ENCOUNTER 2022-06-04 13:51 | Outpatient (REF) | payer OTHER, MEDICAID, SELFPAY ==
[2022-06-04 16:56] LABS: Estimated Average Glucose 105 mg/dL; Hemoglobin A1c % 5.3 %
[2022-06-04 17:24] LABS: Cortisol Random 6.4 ug/dL; Insulin 78 uU/mL (2-29)
[2022-06-05 17:44] LABS: C Peptide 9.34 ng/mL (0.80-3.85)
[2022-06-12 03:13] LABS: Proinsulin 72.6 pmol/L (< OR = 18.8)
[2022-06-12 05:04] LABS: Beta-Hydroxybutyrate 0.03 mmol/L
== END 2022-06-04 13:52 | disposition home or self-care (01) ==
LOC: HO.HMGCLDS 13:51
PROVIDERS: PCP Nurse Practitioner Family; Visit Provider Nurse Practitioner Family
DX: E16.2 Hypoglycemia, unspecified (principal); R53.83 Other fatigue
CPT/HCPCS: 36415; 82010; 82533; 83036; 83525; 84206; 84681

== ENCOUNTER → 2022-07-16 12:07 | Outpatient (BNVA) | payer OTHER, MEDICAID, SELFPAY | PROVIDERS: PCP Nurse Practitioner Family; Visit Provider Internal Medicine Endocrinology, Diabetes & Metabolism | DX: Z13.89 Encounter for screening for other disorder (principal) ==

== ENCOUNTER 2022-08-11 09:03 | Outpatient (REF) | payer MEDICAID, SELFPAY ==
[2022-08-11 12:26] LABS: Glucose Random 96 mg/dL (60-115)
== END 2022-08-11 09:04 | disposition home or self-care (01) ==
LOC: HO.HMGCLDS 09:03
PROVIDERS: PCP Nurse Practitioner Family; Visit Provider Internal Medicine Endocrinology, Diabetes & Metabolism
DX: E16.2 Hypoglycemia, unspecified (principal)
CPT/HCPCS: 36415; 82947

== ENCOUNTER 2022-09-16 08:00 | Outpatient (REF) | payer MEDICAID, SELFPAY ==
[2022-09-16 08:15] LABS: MANUAL DIFF FLAG NO
[2022-09-16 09:28] LABS: Appearance Urine Clear; Color Urine Yellow; Glucose Urine UA Negative (Negative); Leukocyte Esterase Urine Trace (Negative); Nitrite Urine Negative (Negative); PH 5.5 (5.0-9.0); Specific Gravity - Urine 1.025 (1.005-1.025); UMIC TRIGGER UACC YES; Urine Blood Negative (Negative); Urine Ketones Negative (Negative); Urine Protein Negative (Neg-Trace)
[2022-09-16 09:30] LABS: Bacteria Urine 1+ (None Seen); Hyaline Casts Urine 0-2 /LPF (0-2); WBC Urine 0-5 /HPF (0-5)
[2022-09-16 09:31] LABS: Basophils Percent Auto 0.8 % (0-2); Eosinophils Absolute Auto 0.1 X10*3/uL (0.0-0.4); Eosinophils Percent Auto 2.6 % (0-4); Hematocrit 37.7 % (37.0-47.0); Hemoglobin 12.3 g/dl (12.0-16.0); Imm Gran Abs Auto 0.01 X10*3/uL (0.00-0.03); Imm Gran Pct Auto 0.2 % (0.0-0.4); Lymphocytes Absolute Auto 1.7 X10*3/uL (1.2-4.9); Lymphocytes Percent Auto 34.2 % (20-40); Mean Corpuscular HGB Conc 32.6 g/dl (31.0-35.0); Mean Corpuscular Hemoglobin 30.9 pg (27.0-33.0); Mean Corpuscular Volume 94.7 fL (80.0-98.0); Monocytes Absolute Auto 0.4 X10*3/uL (0.1-1.2); Monocytes Percent Auto 7.3 % (2-11); Neutrophils Absolute Auto 2.7 x10*3/uL (2.0-8.3); Neutrophils Percent Auto 54.9 % (45-73); Platelet Count 222 X10*3/uL (160-400); Red Blood Count 3.98 X10*6/uL (4.20-5.50); Red Cell Distribution Width 12.6 % (11.0-16.0); White Blood Count 4.9 X10*3/uL (4.8-10.8)
[2022-09-16 10:31] LABS: Alanine Aminotransferase 16 U/L (0-31); Albumin Level 3.4 g/dL (3.5-5.0); Alkaline Phosphatase 63 U/L (39-117); Anion Gap 8 (12-20); Aspartate Amino Transferase 23 U/L (5-31); Bilirubin Total 0.7 mg/dL (0.0-1.0); Blood Urea Nitrogen 11 mg/dL (9-16); Calcium 8.9 mg/dL (8.4-10.2); Carbon Dioxide 28 mmol/L (22-29); Chloride 109 mmol/L (96-108); Cholesterol 158 mg/dL; Estimated Glomerular Filt Rate > 60; Glucose Fasting 88 mg/dL (60-99); HDL Cholesterol 51 mg/dL; LDL Cholesterol Calculated 95 mg/dl; Potassium 4.3 mmol/L (3.3-5.1); Sodium 141 mmol/L (135-145); Total Protein 6.1 g/dL (6.5-8.0); Triglycerides 62 mg/dL
[2022-09-16 10:34] LABS: TSH reflex Free T4 0.43 uIU/mL (0.32-4.0); Vitamin D 25-OH Total 37.7 ng/mL (>30)
[2022-09-23 10:59] LABS: Metanephrine, Free <25 pg/mL (<=57); Normetanephrines, Free 62 pg/mL (<=148); Total Metanephrine, Free 62 pg/mL (<=205)
== END 2022-09-16 08:01 | disposition home or self-care (01) ==
LOC: HO.LAB 08:00
PROVIDERS: PCP Nurse Practitioner Family; Visit Provider Internal Medicine Endocrinology, Diabetes & Metabolism
DX: M79.7 Fibromyalgia (principal); I10 Essential (primary) hypertension; Z78.0 Asymptomatic menopausal state
CPT/HCPCS: 36415; 80053; 80061; 81001; 82306; 83835; 84443; 85025

== ENCOUNTER 2022-10-05 15:30 | Outpatient (REF) | payer OTHER, SELFPAY ==
--- NOTE | ~2022-10-05 | MM_ITS ---
EXAMINATION: MM SCREENING DIGITAL BREAST TOMOSYNTHESIS, BILATERAL CLINICAL INFORMATION: Screening. Asymptomatic. The patient is status post bilateral breast reduction. The lifetime risk of breast cancer based on the Tyrer-Cuzick Model is 8.1%. COMPARISON: Mammography: This study is compared with prior exams dating back to 2018. TECHNIQUE: Digital breast tomosynthesis is performed in both the craniocaudal and mediolateral oblique views along with computer-aided detection (CAD). Synthesized 2D images are generated from the tomosynthesis. FINDINGS: There are scattered areas of fibroglandular density (ACR BI-RADS breast composition Category b). There are no significant masses, abnormal calcifications, or other abnormalities. There are bilateral post reduction changes present. MM/MM tomosynthesis screening BI IMPRESSION: No mammographic evidence of malignancy. ASSESSMENT: BI-RADS BI-RADS 2 - Benign Findings RECOMMENDATION: Routine annual mammography screening. 1 year F/U This examination should not preclude the clinical evaluation of a suspicious palpable abnormality. This patient's information was entered into a reminder system with a target due date for their next mammogram.
== END 2022-10-05 15:31 | disposition home or self-care (01) ==
LOC: HO.MAMMO 15:30
PROVIDERS: PCP Nurse Practitioner Family; Visit Provider Nurse Practitioner Family
DX: Z12.31 Encounter for screening mammogram for malignant neoplasm of breast (principal)
CPT/HCPCS: 77063; 77067

== ENCOUNTER → 2022-10-05 16:30 | Outpatient (BNV) | payer OTHER, SELFPAY | PROVIDERS: PCP Nurse Practitioner Family; Visit Provider Radiology Diagnostic Radiology | DX: Z12.31 Encounter for screening mammogram for malignant neoplasm of breast (principal) | CPT/HCPCS: 77063; 77067 ==

== ENCOUNTER 2022-10-12 13:02 | Outpatient (AMB) | payer OTHER, SELFPAY ==
[2022-10-12 13:13] VITALS: BP 120/80; BMI 38.1
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
== END 2022-10-12 14:34 | disposition home or self-care (01) ==
LOC: HO.HWS 13:02
PROVIDERS: PCP Nurse Practitioner Family; Visit Provider Obstetrics & Gynecology
DX: N76.0 Acute vaginitis (principal)
CPT/HCPCS: 99213

== ENCOUNTER 2022-10-12 13:02 | Outpatient (REF) | payer OTHER, SELFPAY ==
[2022-10-12 18:21] LABS: CT PCR NOT DETECTED (Not Detect.); NG PCR NOT DETECTED (Not Detect.)
[2022-10-14 02:21] LABS: Syphilis Screen Nonreactive (Nonreactive)
[2022-10-14 03:39] LABS: HIV AB/AG Nonreactive (Nonreactive); HIV Num 1 0.06 S/CO (0.00-0.99); Hepatitis B Surface Antigen Negative (Negative); ~Hepatitis C Antibody Nonreactive (Nonreactive)
== END 2022-10-12 13:03 | disposition home or self-care (01) ==
LOC: HO.LAB 13:02
PROVIDERS: PCP Nurse Practitioner Family; Visit Provider Obstetrics & Gynecology
DX: Z11.4 Encounter for screening for human immunodeficiency virus [HIV] (principal); N76.0 Acute vaginitis
CPT/HCPCS: 0353U; 86780; 86803; 87340; 87389; 99212

== ENCOUNTER 2022-10-12 13:43 | Outpatient (REF) | payer OTHER, SELFPAY ==
[2022-10-13 12:09] LABS: BV Int Neg Control Negative (Negative); BV Int Pos Control Positive (Positive)
== END 2022-10-12 13:44 | disposition home or self-care (01) ==
LOC: HO.LNP 13:43
PROVIDERS: Visit Provider Obstetrics & Gynecology
DX: N76.0 Acute vaginitis (principal)
CPT/HCPCS: 87480; 87510; 87660

== ENCOUNTER 2022-10-22 08:13 | Outpatient (AMB) | payer OTHER, SELFPAY ==
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
[2022-10-22 08:18] VITALS: BP 120/60; PULSE 79; O2SAT 99; BMI 38.2
== END 2022-10-22 08:36 | disposition home or self-care (01) ==
PROVIDERS: PCP Nurse Practitioner Family; Visit Provider Internal Medicine Endocrinology, Diabetes & Metabolism
DX: E16.2 Hypoglycemia, unspecified (principal); I10 Essential (primary) hypertension
CPT/HCPCS: 99213

== ENCOUNTER → 2022-10-22 08:13 | Outpatient (BNVA) | payer OTHER, MEDICAID, SELFPAY | PROVIDERS: Visit Provider Internal Medicine Endocrinology, Diabetes & Metabolism | DX: E16.1 Other hypoglycemia (principal); I10 Essential (primary) hypertension; Z90.49 Acquired absence of other specified parts of digestive tract; Z90.3 Acquired absence of stomach [part of] | CPT/HCPCS: 99212 ==

== ENCOUNTER 2022-10-26 15:49 | Outpatient (AMB) | payer OTHER, SELFPAY ==
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
[2022-10-26 15:55] VITALS: BP 120/76; BMI 38.2
== END 2022-10-26 16:07 | disposition home or self-care (01) ==
LOC: HO.HWS 15:49
PROVIDERS: PCP Nurse Practitioner Family; Visit Provider Obstetrics & Gynecology
DX: N89.8 Other specified noninflammatory disorders of vagina (principal)
CPT/HCPCS: 99213

== ENCOUNTER → 2022-10-26 15:49 | Outpatient (BNVA) | payer OTHER, SELFPAY | PROVIDERS: PCP Nurse Practitioner Family; Visit Provider Obstetrics & Gynecology | DX: N89.8 Other specified noninflammatory disorders of vagina (principal) | CPT/HCPCS: 99212 ==

== ENCOUNTER 2022-11-04 11:11 | Outpatient (AMB) | payer OTHER, SELFPAY ==
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
[2022-11-04 11:25] VITALS: BP 141/72; PULSE 89; TEMP 36.5; O2SAT 93; BMI 37.4
== END 2022-11-04 11:51 | disposition home or self-care (01) ==
PROVIDERS: PCP Nurse Practitioner Family; Visit Provider Physician Assistant Surgical
DX: E66.9 Obesity, unspecified (principal); Z68.31 Body mass index [BMI] 31.0-31.9, adult
CPT/HCPCS: 99214

== ENCOUNTER 2022-11-04 11:11 | Outpatient (REF) | payer OTHER, SELFPAY ==
[2022-11-04 13:09] LABS: Cholesterol 178 mg/dL; HDL Cholesterol 54 mg/dL; Iron 83 mcg/dL (30-160); LDL Cholesterol Calculated 108 mg/dl; Percent Iron Saturation 29 % (15-50); Total Iron Binding Capacity 291 mcg/dL (228-428); Triglycerides 82 mg/dL; Unsaturated Iron Binding 208 ug/dL
[2022-11-04 13:26] LABS: Ferritin 32 ng/mL (10-250); Vitamin D 25-OH Total 42.5 ng/mL (>30)
[2022-11-04 13:38] LABS: Folate 14.3 ng/mL (> or = 4.0); Vitamin B12 554 pg/mL (200-900)
[2022-11-06 19:38] LABS: Calcium (PTHI) 9.3 mg/dL (8.6-10.4); PTHI 47 pg/mL (16-77)
[2022-11-08 20:04] LABS: Zinc 60 mcg/dL (60-130)
[2022-11-09 12:13] LABS: Vitamin B1 22 nmol/L (8-30)
[2022-11-11 00:29] LABS: Vitamin A 45 mcg/dL (38-98)
== END 2022-11-04 11:12 | disposition home or self-care (01) ==
LOC: HO.LAB 11:11
PROVIDERS: PCP Nurse Practitioner Family; Visit Provider Physician Assistant Surgical
DX: E66.9 Obesity, unspecified (principal); R79.89 Other specified abnormal findings of blood chemistry; I10 Essential (primary) hypertension; Z71.3 Dietary counseling and surveillance; Z68.31 Body mass index [BMI] 31.0-31.9, adult; Z98.84 Bariatric surgery status; Z79.899 Other long term (current) drug therapy
CPT/HCPCS: 36415; 80061; 82306; 82607; 82728; 82746; 83540; 83970; 84425; 84590; 84630; 99212

== ENCOUNTER 2022-11-12 13:48 | Outpatient (AMB) | payer OTHER, SELFPAY ==
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
[2022-11-12 13:58] VITALS: BP 122/68; BMI 37.8
== END 2022-11-12 14:18 | disposition home or self-care (01) ==
LOC: HO.HWS 13:48
PROVIDERS: PCP Nurse Practitioner Family; Visit Provider Obstetrics & Gynecology
DX: N95.0 Postmenopausal bleeding (principal); Z32.02 Encounter for pregnancy test, result negative
CPT/HCPCS: 58100; 99213

== ENCOUNTER 2022-11-12 13:48 | Outpatient (REF) | payer OTHER, SELFPAY | END 2022-11-12 13:49 | disposition home or self-care (01) | LOC: HO.LNP 13:48 | PROVIDERS: PCP Nurse Practitioner Family; Visit Provider Obstetrics & Gynecology | DX: N95.0 Postmenopausal bleeding (principal) | CPT/HCPCS: 58100; 81025; 88305; 99212 ==

== ENCOUNTER 2022-11-12 14:25 | Outpatient (REF) | payer OTHER, SELFPAY ==
[2022-11-12 15:23] LABS: Hemoglobin 12.2 g/dl (12.0-16.0); Mean Corpuscular Hemoglobin 30.9 pg (27.0-33.0); Mean Corpuscular Volume 93.7 fL (80.0-98.0); Platelet Count 247 X10*3/uL (160-400); Red Blood Count 3.95 X10*6/uL (4.20-5.50); Red Cell Distribution Width 12.5 % (11.0-16.0); White Blood Count 6.8 X10*3/uL (4.8-10.8)
[2022-11-12 16:51] LABS: HCG Quantitative < 2 mIU/mL; TSH reflex Free T4 0.46 uIU/mL (0.32-4.0)
[2022-11-13 06:41] LABS: CT PCR NOT DETECTED (Not Detect.); NG PCR NOT DETECTED (Not Detect.)
[2022-11-15 13:02] LABS: Lutenizing Hormone 13.3 mIU/mL; Prolactin 7.7 ng/mL
== END 2022-11-12 14:26 | disposition home or self-care (01) ==
LOC: HO.LAB 14:25
PROVIDERS: PCP Nurse Practitioner Family; Visit Provider Obstetrics & Gynecology
DX: N93.9 Abnormal uterine and vaginal bleeding, unspecified (principal); N95.0 Postmenopausal bleeding
CPT/HCPCS: 0353U; 83001; 83002; 84146; 84443; 84702; 85027

== ENCOUNTER 2022-11-19 14:01 | Outpatient (AMB) | payer OTHER, SELFPAY ==
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
[2022-11-19 14:13] VITALS: BP 118/74; BMI 37.4
== END 2022-11-19 14:38 | disposition home or self-care (01) ==
LOC: HO.HWS 14:01
PROVIDERS: PCP Nurse Practitioner Family; Visit Provider Obstetrics & Gynecology
DX: N95.0 Postmenopausal bleeding (principal)
CPT/HCPCS: 99213

== ENCOUNTER → 2022-11-19 14:01 | Outpatient (BNVA) | payer OTHER, SELFPAY | PROVIDERS: PCP Nurse Practitioner Family; Visit Provider Obstetrics & Gynecology | DX: N95.0 Postmenopausal bleeding (principal) | CPT/HCPCS: 99212 ==

== ENCOUNTER 2022-12-04 08:52 | Outpatient (AMB) | payer OTHER, SELFPAY ==
[2022-12-04 09:03] VITALS: BP 132/72; PULSE 68; TEMP 36.6; O2SAT 98; BMI 38.3
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
== END 2022-12-04 09:48 | disposition home or self-care (01) ==
PROVIDERS: PCP Nurse Practitioner Family; Visit Provider Internal Medicine
DX: R07.9 Chest pain, unspecified (principal)
CPT/HCPCS: 99213

== ENCOUNTER 2022-12-09 15:43 | Outpatient (AMB) | payer OTHER, SELFPAY ==
[2022-12-09 16:13] VITALS: BP 118/80; PULSE 57; O2SAT 100; BMI 38.1
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
== END 2022-12-09 17:18 | disposition home or self-care (01) ==
PROVIDERS: PCP Nurse Practitioner Family; Visit Provider Nurse Practitioner Family
DX: M79.7 Fibromyalgia (principal); F41.9 Anxiety disorder, unspecified; F32.A Depression, unspecified
CPT/HCPCS: 99213

== ENCOUNTER 2022-12-10 11:39 | Outpatient (REF) | payer OTHER, SELFPAY ==
[2022-12-10 13:47] LABS: Appearance Urine Turbid; Color Urine Yellow; Glucose Urine UA Negative (Negative); Leukocyte Esterase Urine Negative (Negative); Nitrite Urine Negative (Negative); PH 5.5 (5.0-9.0); Specific Gravity - Urine >= 1.030 (1.005-1.025); Urine Blood Negative (Negative); Urine Ketones Trace mg/dL (Negative); Urine Protein Negative (Neg-Trace)
[2022-12-10 14:50] LABS: Folate 11.7 ng/mL (> or = 4.0); Vitamin B12 489 pg/mL (200-900)
[2022-12-10 14:52] LABS: Alanine Aminotransferase 16 U/L (0-31); Albumin Level 3.7 g/dL (3.5-5.0); Alkaline Phosphatase 66 U/L (39-117); Anion Gap 10 (12-20); Aspartate Amino Transferase 21 U/L (5-31); Bilirubin Total 0.4 mg/dL (0.0-1.0); Blood Urea Nitrogen 13 mg/dL (9-16); C Reactive Protein 0.27 mg/dL (< or = 0.50); Carbon Dioxide 27 mmol/L (22-29); Chloride 107 mmol/L (96-108); Estimated Glomerular Filt Rate > 60; Glucose Random 112 mg/dL (60-115); Potassium 3.9 mmol/L (3.3-5.1); Sodium 140 mmol/L (135-145); Total Protein 6.9 g/dL (6.5-8.0)
[2022-12-10 15:06] LABS: Ferritin 22 ng/mL (10-250)
[2022-12-10 15:33] LABS: Erythrocyte Sedimentation Rate 16 MM/HR (0-20)
== END 2022-12-10 11:40 | disposition home or self-care (01) ==
LOC: HO.HMGCLDS 11:39
PROVIDERS: PCP Nurse Practitioner Family; Visit Provider Nurse Practitioner Family
DX: M79.7 Fibromyalgia (principal)
CPT/HCPCS: 36415; 80053; 81003; 82550; 82607; 82728; 82746; 85652; 86140

== ENCOUNTER 2023-01-07 11:34 | Outpatient (AMB) | payer OTHER, SELFPAY ==
[2023-01-07 13:23] VITALS: BP 110/68; PULSE 89; TEMP 37.1; O2SAT 100; BMI 38.6
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
== END 2023-01-07 13:54 | disposition home or self-care (01) ==
PROVIDERS: PCP Nurse Practitioner Family; Visit Provider Emergency Medicine
DX: J06.9 Acute upper respiratory infection, unspecified (principal)
CPT/HCPCS: 99213

== ENCOUNTER 2023-01-16 10:13 | Outpatient (AMB) | payer OTHER, SELFPAY ==
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
[2023-01-16 12:51] VITALS: BP 122/74; PULSE 83; O2SAT 99
== END 2023-01-16 13:23 | disposition home or self-care (01) ==
PROVIDERS: PCP Nurse Practitioner Family; Visit Provider Physician Assistant Medical
DX: M62.838 Other muscle spasm (principal); T14.8XXA Other injury of unspecified body region, initial encounter; R10.9 Unspecified abdominal pain; N39.0 Urinary tract infection, site not specified
CPT/HCPCS: 81003; 99051; 99213

== ENCOUNTER 2023-01-16 13:16 | Outpatient (REF) | payer OTHER, SELFPAY ==
--- NOTE | ~2023-01-16 | XR_ITS ---
EXAMINATION: XR CERVICAL SPINE CLINICAL INFORMATION: Cervicalgia. COMPARISON: None available. TECHNIQUE: 6 views of the cervical spine, inclusive of flexion and extension views, were obtained. FINDINGS: There is mild straightening of the cervical lordosis. There is C4-C5 and C5-C6 bony fusion. Degenerative changes are seen at the C3-C4, C6-C7 and C7-T1 disc levels. The craniovertebral junction and the C1-C2 alignment is normal. There is no visible acute fracture, dislocation or subluxation seen. There is mild narrowing of bilateral C6-C7 neural foramina from uncovertebral hypertrophic changes. The prevertebral and paravertebral soft tissues are normal. XR/XR cervical spine 5V IMPRESSION: C4-C5 and C5-C6 bony fusion. There are degenerative disc changes at the C3-C4, C6-C7 and C7-T1 disc levels. No visible acute fracture, dislocation or subluxation seen.
== END 2023-01-16 13:17 | disposition home or self-care (01) ==
LOC: HO.HMGCX 13:16
PROVIDERS: PCP Nurse Practitioner Family; Visit Provider Physician Assistant Medical
DX: M54.2 Cervicalgia (principal)
CPT/HCPCS: 72050

== ENCOUNTER 2023-02-22 09:11 | Outpatient (AMB) | payer OTHER, SELFPAY ==
[2023-02-22 09:41] VITALS: BP 122/76; PULSE 70; TEMP 36.6; O2SAT 99; BMI 38.3
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
== END 2023-02-22 10:01 | disposition home or self-care (01) ==
PROVIDERS: PCP Nurse Practitioner Family; Visit Provider Nurse Practitioner Family
DX: J45.909 Unspecified asthma, uncomplicated (principal)
CPT/HCPCS: 99213

== ENCOUNTER 2023-04-06 15:16 | Outpatient (REF) | payer OTHER, SELFPAY ==
[2023-04-06 16:20] LABS: Hematocrit 38.3 % (37.0-47.0); Hemoglobin 12.6 g/dl (12.0-16.0); Mean Corpuscular HGB Conc 32.9 g/dl (31.0-35.0); Mean Corpuscular Hemoglobin 30.7 pg (27.0-33.0); Mean Corpuscular Volume 93.2 fL (80.0-98.0); Mean Platelet Volume 10.4 fL (9.4-12.3); Platelet Count 223 X10*3/uL (160-400); Red Blood Count 4.11 X10*6/uL (4.20-5.50); Red Cell Distribution Width 12.5 % (11.0-16.0); White Blood Count 6.3 X10*3/uL (4.8-10.8)
[2023-04-06 17:12] LABS: TSH reflex Free T4 0.08 uIU/mL (0.32-4.0)
[2023-04-06 18:58] LABS: Free T4 (Free Thyroxine) 1.18 ng/dL (0.71-1.85)
[2023-04-07 09:24] LABS: Follicle Stimulating Hormone 97.7 mIU/mL; Prolactin 3.8 ng/mL
== END 2023-04-06 15:17 | disposition home or self-care (01) ==
LOC: HO.LAB 15:16
PROVIDERS: PCP Nurse Practitioner Family; Visit Provider Obstetrics & Gynecology
DX: Z01.419 Encounter for gynecological examination (general) (routine) without abnormal findings (principal); N93.9 Abnormal uterine and vaginal bleeding, unspecified
CPT/HCPCS: 36415; 83001; 83002; 84146; 84439; 84443; 85027; 99396

== ENCOUNTER 2023-04-06 15:16 | Outpatient (AMB) | payer OTHER, SELFPAY ==
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
[2023-04-06 15:31] VITALS: BP 118/72; BMI 40.3
== END 2023-04-06 15:59 | disposition home or self-care (01) ==
LOC: HO.HWS 15:16
PROVIDERS: PCP Nurse Practitioner Family; Visit Provider Obstetrics & Gynecology
DX: Z01.419 Encounter for gynecological examination (general) (routine) without abnormal findings (principal); N93.9 Abnormal uterine and vaginal bleeding, unspecified
CPT/HCPCS: 99396

== ENCOUNTER 2023-04-27 16:03 | Outpatient (REF) | payer OTHER, SELFPAY ==
--- NOTE | ~2023-04-27 | US_ITS ---
EXAMINATION: US PELVIS CLINICAL INFORMATION: Abnormal uterine bleeding; the last menstrual period is not specified (irregular menses). COMPARISON: Pelvic ultrasound dated 10/08/2021. TECHNIQUE: Ultrasound of the pelvis is performed using both transabdominal and transvaginal transducers along with Doppler. Transvaginal imaging is performed due to inadequate visualization transabdominally. FINDINGS: Uterus: The uterus is anteverted and measures 7.7 x 3.9 x 6.5 cm. The double wall endometrial thickness is 7 mm. The uterus is smooth in contour and has normal myometrial echogenicity. No visible fibroid. Adnexa: Both ovaries are visualized. There is normal color flow to the adnexa. There is no ovarian torsion. There is trace free fluid in the cul-de-sac. Right ovary measures 1.2 x 2.5 x 2.4 cm, volume 2.4 mL. Left ovary measures 1.3 x 2.0 x 1.8 cm, volume 2.5 mL. US/US pelvic and transvaginal IMPRESSION: There is trace nonspecific free fluid within the cul-de-sac. The examination is otherwise unremarkable. The endometrial stripe thickness would be normal for a premenopausal patient; please correlate with the patient's menstrual status.
== END 2023-04-27 16:04 | disposition home or self-care (01) ==
LOC: HO.US 16:03
PROVIDERS: PCP Nurse Practitioner Family; Visit Provider Obstetrics & Gynecology
DX: N93.9 Abnormal uterine and vaginal bleeding, unspecified (principal)
CPT/HCPCS: 76830; 76856

== ENCOUNTER 2023-05-06 13:19 | Outpatient (AMB) | payer OTHER, SELFPAY ==
[2023-05-06 13:26] VITALS: BP 116/80; PULSE 77; TEMP 36.4; O2SAT 97; BMI 38.1
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
== END 2023-05-06 14:17 | disposition home or self-care (01) ==
PROVIDERS: PCP Nurse Practitioner Family; Visit Provider Nurse Practitioner Family
DX: M16.12 Unilateral primary osteoarthritis, left hip (principal)
CPT/HCPCS: 99213

== ENCOUNTER 2023-05-06 13:43 | Outpatient (REF) | payer OTHER, SELFPAY ==
--- NOTE | ~2023-05-06 | XR_ITS ---
EXAMINATION: XR HIP, LEFT CLINICAL INFORMATION: Unspecified osteoarthritis, unspecified site Left hip pain for one year COMPARISON: CT scan abdomen and pelvis 12/03/2018 TECHNIQUE: Two views of the left hip. FINDINGS: No fracture. Alignment is anatomic. Hip joint space is maintained. Soft tissues are unremarkable. A diffuse small sclerotic densities within the femoral head and neck are unchanged and most likely represent bone islands. XR/XR hip LT min 2V IMPRESSION: No significant bony abnormality.
== END 2023-05-06 13:44 | disposition home or self-care (01) ==
LOC: HO.HMGCX 13:43
PROVIDERS: PCP Nurse Practitioner Family; Visit Provider Nurse Practitioner Family
DX: N93.9 Abnormal uterine and vaginal bleeding, unspecified (principal); M16.12 Unilateral primary osteoarthritis, left hip
CPT/HCPCS: 58100; 73502

== ENCOUNTER 2023-05-06 14:13 | Outpatient (AMB) | payer OTHER, SELFPAY ==
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
[2023-05-06 14:42] VITALS: BP 124/76
== END 2023-05-06 15:00 | disposition home or self-care (01) ==
LOC: HO.HWS 14:13
PROVIDERS: PCP Nurse Practitioner Family; Visit Provider Obstetrics & Gynecology
DX: N93.9 Abnormal uterine and vaginal bleeding, unspecified (principal)
CPT/HCPCS: 58100

== ENCOUNTER 2023-05-06 15:01 | Outpatient (REF) | payer OTHER, SELFPAY | END 2023-05-06 15:02 | disposition home or self-care (01) | LOC: HO.LNP 15:01 | PROVIDERS: Visit Provider Obstetrics & Gynecology | DX: N95.0 Postmenopausal bleeding (principal) | CPT/HCPCS: 88305 ==

== ENCOUNTER 2023-07-16 10:28 | Outpatient (AMB) | payer OTHER, SELFPAY ==
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
[2023-07-16 10:36] VITALS: BP 112/80; PULSE 76; TEMP 36.3; O2SAT 96; BMI 45.3
== END 2023-07-16 16:11 | disposition home or self-care (01) ==
PROVIDERS: PCP Nurse Practitioner Family; Visit Provider Physician Assistant Medical
DX: M79.18 Myalgia, other site (principal)
CPT/HCPCS: 99213

== ENCOUNTER 2023-07-27 06:55 | Outpatient (AMB) | payer OTHER, SELFPAY ==
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
== END 2023-07-27 07:33 | disposition home or self-care (01) ==
LOC: HO.HMGC 06:55
PROVIDERS: PCP Nurse Practitioner Family; Visit Provider Nurse Practitioner Family
DX: R10.9 Unspecified abdominal pain (principal); R19.7 Diarrhea, unspecified
CPT/HCPCS: 99213

== ENCOUNTER 2023-07-31 09:52 | Outpatient (REF) | payer OTHER, SELFPAY ==
[2023-07-31 11:29] LABS: MANUAL DIFF FLAG NO
[2023-07-31 11:50] LABS: Basophils Percent Auto 0.6 % (0-2); Eosinophils Absolute Auto 0.2 X10*3/uL (0.0-0.4); Eosinophils Percent Auto 3.7 % (0-4); Hematocrit 40.7 % (37.0-47.0); Hemoglobin 13.5 g/dl (12.0-16.0); Imm Gran Abs Auto 0.01 X10*3/uL (0.00-0.03); Imm Gran Pct Auto 0.2 % (0.0-0.4); Lymphocytes Absolute Auto 1.4 X10*3/uL (1.2-4.9); Lymphocytes Percent Auto 27.3 % (20-40); Mean Corpuscular HGB Conc 33.2 g/dl (31.0-35.0); Mean Corpuscular Hemoglobin 30.7 pg (27.0-33.0); Mean Corpuscular Volume 92.5 fL (80.0-98.0); Mean Platelet Volume 10.8 fL (9.4-12.3); Monocytes Absolute Auto 0.3 X10*3/uL (0.1-1.2); Monocytes Percent Auto 6.3 % (2-11); Neutrophils Absolute Auto 3.2 x10*3/uL (2.0-8.3); Neutrophils Percent Auto 61.9 % (45-73); Platelet Count 257 X10*3/uL (160-400); Red Cell Distribution Width 12.4 % (11.0-16.0); White Blood Count 5.2 X10*3/uL (4.8-10.8)
[2023-07-31 11:54] LABS: Appearance Urine Cloudy; Color Urine Yellow; Glucose Urine UA Negative (Negative); Leukocyte Esterase Urine Moderate (2+) (Negative); Nitrite Urine Negative (Negative); UMIC TRIGGER UACC YES; Urine Blood Negative (Negative); Urine Ketones Negative (Negative); Urine Protein Negative (Neg-Trace)
[2023-07-31 12:06] LABS: Bacteria Urine 1+ (None Seen); Hyaline Casts Urine 0-2 /LPF (0-2); RBC Urine 0-2 /HPF (0-2); WBC Urine 0-5 /HPF (0-5)
[2023-07-31 12:34] LABS: TSH reflex Free T4 2.93 uIU/mL (0.32-4.0)
== END 2023-07-31 09:53 | disposition home or self-care (01) ==
LOC: HO.HMGCLDS 09:52
PROVIDERS: PCP Nurse Practitioner Family; Visit Provider Nurse Practitioner Family
DX: N39.0 Urinary tract infection, site not specified (principal); R19.7 Diarrhea, unspecified; R10.9 Unspecified abdominal pain; E03.9 Hypothyroidism, unspecified
CPT/HCPCS: 36415; 81001; 84443; 85025; 87086; 87147

== ENCOUNTER 2023-07-31 10:12 | Outpatient (AMB) | payer OTHER, SELFPAY ==
[2023-07-31 10:14] VITALS: BP 110/70; PULSE 79; TEMP 36.6; O2SAT 97; BMI 45.1
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
== END 2023-07-31 10:42 | disposition home or self-care (01) ==
PROVIDERS: PCP Nurse Practitioner Family; Visit Provider Nurse Practitioner Family
DX: B35.1 Tinea unguium (principal)
CPT/HCPCS: 99213

== ENCOUNTER 2023-08-12 07:06 | Outpatient (AMB) | payer OTHER, SELFPAY ==
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
== END 2023-08-12 08:55 | disposition home or self-care (01) ==
LOC: HO.HMGC 07:06
PROVIDERS: PCP Nurse Practitioner Family; Visit Provider Nurse Practitioner Family
DX: M54.16 Radiculopathy, lumbar region (principal); R29.898 Other symptoms and signs involving the musculoskeletal system; M79.7 Fibromyalgia; E66.9 Obesity, unspecified; Z68.31 Body mass index [BMI] 31.0-31.9, adult; F43.9 Reaction to severe stress, unspecified
CPT/HCPCS: 99213

== ENCOUNTER 2023-08-20 14:05 | Outpatient (REF) | payer OTHER, SELFPAY ==
--- NOTE | 2023-08-20 14:08 | EMG_ITS ---
Chief complaint: Right leg numbness, abdominal numbness, left hip pain Reason for referral: Evaluate for radiculopathy Referred by: Jasson Gomez NP Procedure done: Bilateral lower extremity NCS/EMG Precautions and/or limitations: None French speaking, seen with business trainer. The limb temperature was monitored continuously and remained between 32-36 degrees C during the performance of the NCS. Nerve Conduction Studies Anti Sensory Summary Table ?Stim Site NR Onset (ms) Norm Onset (ms) Peak (ms) Norm Peak (ms) O-P Amp (?V) Norm O-P Amp Site1 Site2 Delta-0 (ms) Dist (cm) Maximo (m/s) Norm Maximo (m/s) Left Sural Anti Sensory (Lat Mall) Calf ? 2.6 3.1 <4.0 9.9 >5.0 Calf Lat Mall 2.6 14.0 54 Right Sural Anti Sensory (Lat Mall) Calf ? 2.6 3.4 <4.0 9.1 >5.0 Calf Lat Mall 2.6 14.0 54 Motor Summary Table ?Stim Site NR Onset (ms) Norm Onset (ms) O-P Amp (mV) Norm O-P Amp iAmp (mV) Amp (1st) (%) Site1 Site2 Delta-0 (ms) Dist (cm) Maximo (m/s) Norm Maximo (m/s) Left Peroneal Motor (Ext Dig Brev) Ankle ? 3.4 <4.0 2.5 >2.5 2.7 100.0 Ankle Ext Dig Brev 3.4 0.0 B Fib ? 9.8 2.2 2.6 88.0 B Fib Ankle 6.4 34.0 53 >40 Poplt ? 10.7 2.2 2.5 88.0 Poplt B Fib 0.9 4.5 50 >40 Right Peroneal Motor (Ext Dig Brev) Ankle ? 3.4 <4.0 2.3 >2.5 2.8 100.0 Ankle Ext Dig Brev 3.4 0.0 B Fib ? 10.5 2.0 2.4 87.0 B Fib Ankle 7.1 34.0 48 >40 Poplt ? 11.3 1.9 2.3 82.6 Poplt B Fib 0.8 5.5 69 >40 Left Tibial Motor (Abd Riddle Brev) Ankle ? 3.2 <5 8.6 >2.5 12.3 100.0 Ankle Abd Riddle Brev 3.2 0.0 Knee ? 12.1 6.1 8.6 70.9 Knee Ankle 8.9 41.0 46 >40 Right Tibial Motor (Abd Riddle Brev) Ankle ? 3.8 <5 13.2 >2.5 18.4 100.0 Ankle Abd Riddle Brev 3.8 0.0 Knee ? 11.9 9.0 12.1 68.2 Knee Ankle 8.1 39.0 48 >40 EMG ?Side Muscle Nerve Root Ins Act Fibs Psw Amp Dur Poly Recrt Int Pat Comment Right AbdHallucis MedPlantar S1-2 Incr 1+ 1+ Nml Nml 0 Nml Complete Right AntTibialis Dp Br Peron L4-5 Nml Nml Nml Nml Nml 0 Nml Complete Right PostTibialis Tibial L5, S1 Nml Nml Nml Nml Nml 0 Nml Complete Right MedGastroc Tibial S1-2 Nml Nml Nml Nml Nml 0 Nml Complete Right VastusMed Femoral L2-4 Nml Nml Nml Nml Nml 0 Nml Complete Left AbdHallucis MedPlantar S1-2 Nml Nml Nml Nml Nml 0 Nml Complete Left AntTibialis Dp Br Peron L4-5 Nml Nml Nml Nml Nml 0 Nml Complete Left PostTibialis Tibial L5, S1 Nml Nml Nml Nml Nml 0 Nml Complete Left MedGastroc Tibial S1-2 Nml Nml Nml Nml Nml 0 Nml Complete Left VastusMed Femoral L2-4 Nml Nml Nml Nml Nml 0 Nml Complete Paraspinal EMG ?Side Muscle Nerve Root Ins Act Fibs Psw Comment Right Lumbar Upper Rami Nml Nml Nml Right Lumbar Mid Rami Nml Nml Nml Right Lumbar Lower Rami Incr 1+ 1+ Left Lumbar Upper Rami Nml Nml Nml Left Lumbar Mid Rami Nml Nml Nml Left Lumbar Lower Rami Nml Nml Nml FINDINGS: Right peroneal nerve showed slightly small amplitude. Rest of nerves tested within normal. Concentric needle EMG was performed on selected muscles of the bilateral lower extremity and lumbar paraspinals. Study revealed signs of electric abnormalities as shown in the table below. Right AH and lower lumbar paraspinals showed increased insertional activity, PSWs and fibrillations. IMPRESSION: 1. This is an abnormal study. 2. There is electrodiagnostic evidence for right L5-S1 radiculopathy. 3. There is no electrodiagnostic evidence for peroneal neuropathy, tibial neuropathy, lumbosacral plexopathy, or peripheral neuropathy. CLINICAL COMMENT: Findings consistent with MRI 2020. Consider repeat imaging. Thank you for your kind referral. Evelyn Packer MD, NILS Board Certified, [place] Board [employer] and Rehabilitation (ABPMR) Board Certified, [place] Board of Electrodiagnostic Medicine (ABEM) CODIN 12739 x 2 MTDD
== END 2023-08-20 14:06 | disposition home or self-care (01) ==
LOC: HO.NEURO 14:05
PROVIDERS: PCP Nurse Practitioner Family; Visit Provider Nurse Practitioner Family
DX: M54.16 Radiculopathy, lumbar region (principal); R29.898 Other symptoms and signs involving the musculoskeletal system
CPT/HCPCS: 95886; 95909

== ENCOUNTER → 2023-08-20 14:08 | Outpatient (BNV) | payer OTHER, SELFPAY | PROVIDERS: PCP Nurse Practitioner Family; Visit Provider Physical Medicine & Rehabilitation | DX: M54.16 Radiculopathy, lumbar region (principal) | CPT/HCPCS: 95886; 95909 ==

== ENCOUNTER 2023-08-23 15:32 | Outpatient (AMB) | payer OTHER, SELFPAY ==
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
== END 2023-08-24 08:06 | disposition home or self-care (01) ==
LOC: HO.HWS 15:32
PROVIDERS: PCP Nurse Practitioner Family; Visit Provider Obstetrics & Gynecology
DX: N93.9 Abnormal uterine and vaginal bleeding, unspecified (principal)
CPT/HCPCS: 99211

== ENCOUNTER → 2023-08-23 15:32 | Outpatient (BNVA) | payer OTHER, SELFPAY | PROVIDERS: PCP Nurse Practitioner Family; Visit Provider Obstetrics & Gynecology ==

== ENCOUNTER 2023-09-10 13:56 | Outpatient (REF) | payer OTHER, SELFPAY ==
--- NOTE | ~2023-09-10 | CT_ITS ---
EXAMINATION: CT ABDOMEN AND PELVIS WITHOUT CONTRAST CLINICAL INFORMATION: Right abdominal pain. COMPARISON: CT enterography dated 03/18/2022. TECHNIQUE: Multidetector volumetric imaging was performed from the superior aspect of the liver through the pubic symphysis. Sagittal and coronal reformatted images were obtained on the technologist's workstation. This CT examination was performed using dose optimization techniques as appropriate, variously including the following: *Automated exposure control *Adjustment of mA and/or kV according to patient size (this includes techniques or standardized protocols for targeted exams where dose is matched to indication/reason for exam; i.e. extremities or head) *Use of iterative reconstruction technique DLP: 67 mGy-cm FINDINGS: LUNG BASES: At the posterior left base (5:11), there is a 1 mm noncalcified subpleural nodule. This is unchanged from 03/17/2022 (7:75), and it is considered benign, requiring no imaging follow-up. LIVER, GALLBLADDER, AND BILIARY TREE: The liver is normal in size, shape, and attenuation. No focal hepatic lesion or biliary ductal dilatation is present. The gallbladder is surgically absent. PANCREAS: Unremarkable. SPLEEN: Unremarkable. ADRENAL GLANDS: Unremarkable. KIDNEYS AND URETERS: The kidneys are normal in size, shape, and attenuation. No hydronephrosis, hydroureter, or calculi seen. No perinephric stranding. BLADDER: Unremarkable. GASTROINTESTINAL TRACT: Gastric surgical miguel are noted. There is a moderate stool burden. No obstruction, free intraperitoneal air or abscess is seen. There is no focal bowel wall thickening. The vermiform appendix is normal. ABDOMINAL WALL: There is a tiny fat-containing umbilical hernia. LYMPH NODES: Normal. VASCULAR: Unremarkable. PELVIC VISCERA: The uterus and adnexa are unremarkable. OSSEOUS STRUCTURES: There is multi-level thoracolumbar spondylosis, most pronounced at L4-L5 and L5-S1. No acute or aggressive osseous finding is noted. CT/CT abdomen pelvis wo IV con IMPRESSION: 1. There are postoperative changes again seen of the stomach. No obstruction, free intraperitoneal air or abscess is seen. 2. There is a tiny fat-containing umbilical hernia. 3. There is multi-level thoracolumbar spondylosis, with degenerative disease most pronounced at L4-L5 and L5-S1. Fleischner guidelines were followed.
== END 2023-09-10 13:57 | disposition home or self-care (01) ==
LOC: HO.CT 13:56
PROVIDERS: PCP Nurse Practitioner Family; Visit Provider Nurse Practitioner Family
DX: R10.9 Unspecified abdominal pain (principal); R19.7 Diarrhea, unspecified
CPT/HCPCS: 74176

== ENCOUNTER 2023-09-15 08:37 | Outpatient (AMB) | payer OTHER, SELFPAY ==
[2023-09-15 08:43] VITALS: BP 120/72; PULSE 78; O2SAT 96; BMI 38.1
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
== END 2023-09-15 09:27 | disposition home or self-care (01) ==
PROVIDERS: PCP Nurse Practitioner Family; Visit Provider Nurse Practitioner Family
DX: Z00.00 Encounter for general adult medical examination without abnormal findings (principal); Z78.0 Asymptomatic menopausal state
CPT/HCPCS: 99396

== ENCOUNTER 2023-09-15 09:28 | Outpatient (REF) | payer OTHER, SELFPAY ==
[2023-09-15 10:24] LABS: MANUAL DIFF FLAG NO
[2023-09-15 10:41] LABS: Basophils Percent Auto 0.8 % (0-2); Eosinophils Absolute Auto 0.1 X10*3/uL (0.0-0.4); Eosinophils Percent Auto 2.7 % (0-4); Hemoglobin 14.2 g/dl (12.0-16.0); Imm Gran Abs Auto 0.01 X10*3/uL (0.00-0.03); Imm Gran Pct Auto 0.2 % (0.0-0.4); Lymphocytes Absolute Auto 1.4 X10*3/uL (1.2-4.9); Lymphocytes Percent Auto 28.4 % (20-40); Mean Corpuscular Hemoglobin 30.8 pg (27.0-33.0); Mean Corpuscular Volume 93.3 fL (80.0-98.0); Mean Platelet Volume 10.8 fL (9.4-12.3); Monocytes Absolute Auto 0.3 X10*3/uL (0.1-1.2); Monocytes Percent Auto 7.1 % (2-11); Neutrophils Absolute Auto 2.9 x10*3/uL (2.0-8.3); Neutrophils Percent Auto 60.8 % (45-73); Platelet Count 259 X10*3/uL (160-400); Red Blood Count 4.61 X10*6/uL (4.20-5.50); Red Cell Distribution Width 12.3 % (11.0-16.0); White Blood Count 4.8 X10*3/uL (4.8-10.8)
[2023-09-15 11:09] LABS: Alanine Aminotransferase 18 U/L (0-31); Albumin Level 4.2 g/dL (3.5-5.0); Alkaline Phosphatase 75 U/L (39-117); Anion Gap 9 (12-20); Aspartate Amino Transferase 23 U/L (5-31); Bilirubin Total 0.5 mg/dL (0.0-1.0); Blood Urea Nitrogen 12 mg/dL (9-16); Calcium 9.2 mg/dL (8.4-10.2); Carbon Dioxide 27 mmol/L (22-29); Chloride 107 mmol/L (96-108); Cholesterol 248 mg/dL (<200); Estimated Glomerular Filt Rate > 60; Glucose Fasting 98 mg/dL (60-99); HDL Cholesterol 62 mg/dL (>40); LDL Cholesterol Calculated 170 mg/dL (<100); Sodium 139 mmol/L (135-145); Total Protein 7.6 g/dL (6.5-8.0); Triglycerides 81 mg/dL (<150)
[2023-09-15 11:24] LABS: Vitamin D 25-OH Total 30.8 ng/mL (>30)
[2023-09-15 13:51] LABS: Appearance Urine Clear; Color Urine Yellow; Glucose Urine UA Negative (Negative); Leukocyte Esterase Urine Negative (Negative); Nitrite Urine Negative (Negative); PH 5.5 (5.0-9.0); Specific Gravity - Urine 1.025 (1.005-1.025); Urine Blood Negative (Negative); Urine Ketones Negative (Negative); Urine Protein Negative (Neg-Trace)
== END 2023-09-15 09:29 | disposition home or self-care (01) ==
LOC: HO.HMGCLDS 09:28
PROVIDERS: PCP Nurse Practitioner Family; Visit Provider Nurse Practitioner Family
DX: Z00.01 Encounter for general adult medical examination with abnormal findings (principal); Z78.0 Asymptomatic menopausal state; Z13.89 Encounter for screening for other disorder
CPT/HCPCS: 36415; 80053; 80061; 81003; 82306; 84443; 85025

== ENCOUNTER 2023-09-20 10:09 | Outpatient (AMB) | payer OTHER, SELFPAY ==
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
[2023-09-20 10:11] VITALS: BP 130/70; PULSE 78; TEMP 36.4; O2SAT 98; BMI 37.8
== END 2023-09-20 10:47 | disposition home or self-care (01) ==
PROVIDERS: PCP Nurse Practitioner Family; Visit Provider Physician Assistant
DX: L03.113 Cellulitis of right upper limb (principal)
CPT/HCPCS: 99213

== ENCOUNTER 2023-11-29 15:37 | Outpatient (AMB) | payer OTHER, SELFPAY ==
[2023-11-29 15:50] VITALS: BP 122/72; PULSE 76; O2SAT 96; BMI 37.3
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
== END 2023-11-29 16:43 | disposition home or self-care (01) ==
PROVIDERS: PCP Nurse Practitioner Family; Visit Provider Nurse Practitioner Family
DX: M79.7 Fibromyalgia (principal); M79.18 Myalgia, other site; E66.01 Morbid (severe) obesity due to excess calories; Z68.37 Body mass index [BMI] 37.0-37.9, adult
CPT/HCPCS: 99213

== ENCOUNTER 2023-12-30 08:33 | Outpatient (AMB) | payer OTHER, SELFPAY ==
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
[2023-12-30 09:12] VITALS: BP 122/74; PULSE 82; O2SAT 97; BMI 37.8
== END 2023-12-30 11:09 | disposition home or self-care (01) ==
PROVIDERS: PCP Nurse Practitioner Family; Visit Provider Nurse Practitioner Family
DX: M54.2 Cervicalgia (principal)

== ENCOUNTER → 2023-12-30 08:33 | Outpatient (BNVA) | payer OTHER, SELFPAY | PROVIDERS: PCP Nurse Practitioner Family ==

== ENCOUNTER 2023-12-30 09:43 | Outpatient (REF) | payer OTHER, SELFPAY ==
--- NOTE | ~2023-12-30 | XR_ITS ---
EXAMINATION: XR CERVICAL SPINE CLINICAL INFORMATION: Cervicalgia. COMPARISON: Cervical spine radiographs dated 01/16/2023. TECHNIQUE: AP and lateral views of the cervical spine. FINDINGS: Postsurgical change consistent with fusion of the C4 through C6 vertebral bodies are redemonstrated with complete osseous bridging. Grade 1 anterolisthesis of C3 on C4, unchanged. Degenerative disc disease with endplate osteophytes at C2 through C4 as well as C6 through T2, unchanged when compared to the prior examination. No concerning lytic or blastic osseous lesion. Unremarkable prevertebral soft tissues. XR/XR cervical spine 2V IMPRESSION: 1. Fusion of the C4 through C6 vertebral bodies with complete osseous bridging. 2. Grade 1 anterolisthesis of C3 on C4 as well as degenerative disc disease are unchanged. Electronically signed by: Sacha Polk MD 12/30/2023 11:08 AM EDT
[2023-12-30 14:06] LABS: TSH reflex Free T4 0.52 uIU/mL (0.32-4.0)
== END 2023-12-30 09:44 | disposition home or self-care (01) ==
LOC: HO.HMGCX 09:43
PROVIDERS: PCP Nurse Practitioner Family; Referring Provider Nurse Practitioner Family; Visit Provider Nurse Practitioner Family
DX: M54.2 Cervicalgia (principal); R94.6 Abnormal results of thyroid function studies
CPT/HCPCS: 36415; 72040; 84443

== ENCOUNTER 2024-01-06 08:02 | Outpatient (AMB) | payer OTHER, SELFPAY ==
[2024-01-06 08:05] VITALS: BP 118/76; PULSE 76; O2SAT 97; BMI 37.6
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
== END 2024-01-06 15:49 | disposition home or self-care (01) ==
PROVIDERS: PCP Nurse Practitioner Family; Visit Provider Nurse Practitioner Family
DX: E66.01 Morbid (severe) obesity due to excess calories (principal); Z68.37 Body mass index [BMI] 37.0-37.9, adult

== ENCOUNTER → 2024-01-06 08:02 | Outpatient (BNVA) | payer OTHER, SELFPAY | PROVIDERS: PCP Nurse Practitioner Family; Visit Provider Nurse Practitioner Family | DX: E66.01 Morbid (severe) obesity due to excess calories (principal); Z68.37 Body mass index [BMI] 37.0-37.9, adult; Z71.3 Dietary counseling and surveillance | CPT/HCPCS: 99212 ==

== ENCOUNTER 2024-01-24 15:55 | Outpatient (REF) | payer OTHER, SELFPAY ==
[2024-01-25 11:19] LABS: Bacterial Vaginosis PCR NEGATIVE (Negative); Candida Group PCR NOT DETECTED (Not Detect); Candida glab krusei PCR NOT DETECTED (Not Detect); Trichomonas vaginalis PCR NOT DETECTED (Not Detect)
== END 2024-01-24 15:56 | disposition home or self-care (01) ==
LOC: HO.LNP 15:55
PROVIDERS: Registered Nurse; PCP Nurse Practitioner Family; Visit Provider Nurse Practitioner Family
DX: N94.89 Other specified conditions associated with female genital organs and menstrual cycle (principal)
CPT/HCPCS: 0352U

== ENCOUNTER → 2024-01-24 15:55 | Outpatient (AMB) | payer OTHER, SELFPAY ==
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
[2024-01-24 16:04] VITALS: BP 112/78; PULSE 86; O2SAT 98; BMI 37.6
== END ==
PROVIDERS: PCP Nurse Practitioner Family; Visit Provider Registered Nurse
DX: N76.0 Acute vaginitis (principal)

== ENCOUNTER 2024-03-14 10:39 | Outpatient (AMB) | payer OTHER, SELFPAY ==
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
[2024-03-14 11:38] VITALS: BP 112/78; PULSE 78; TEMP 36.6; O2SAT 97; BMI 37.3
== END 2024-03-14 11:59 | disposition home or self-care (01) ==
PROVIDERS: PCP Nurse Practitioner Family; Visit Provider Physician Assistant
DX: R53.83 Other fatigue (principal); J34.89 Other specified disorders of nose and nasal sinuses

== ENCOUNTER 2024-03-27 11:00 | Outpatient (AMB) | payer OTHER, SELFPAY ==
[2024-03-27 11:05] VITALS: BP 118/76; PULSE 78; O2SAT 98; BMI 33.3
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
== END 2024-03-27 13:53 | disposition home or self-care (01) ==
PROVIDERS: PCP Nurse Practitioner Family; Visit Provider Nurse Practitioner Family
DX: R53.83 Other fatigue (principal); E66.01 Morbid (severe) obesity due to excess calories; Z68.30 Body mass index [BMI] 30.0-30.9, adult

== ENCOUNTER 2024-03-27 11:00 | Outpatient (REF) | payer OTHER, SELFPAY ==
[2024-03-27 13:40] LABS: MANUAL DIFF FLAG NO
[2024-03-27 13:42] LABS: Basophils Absolute Auto 0.1 X10*3/uL (0.0-0.2); Basophils Percent Auto 1.1 % (0-2); Eosinophils Absolute Auto 0.1 X10*3/uL (0.0-0.4); Eosinophils Percent Auto 2.9 % (0-4); Hematocrit 38.6 % (37.0-47.0); Imm Gran Abs Auto 0.01 X10*3/uL (0.00-0.03); Imm Gran Pct Auto 0.2 % (0.0-0.4); Lymphocytes Absolute Auto 1.3 X10*3/uL (1.2-4.9); Lymphocytes Percent Auto 28.8 % (20-40); Mean Corpuscular HGB Conc 33.7 g/dl (31.0-35.0); Mean Corpuscular Hemoglobin 31.3 pg (27.0-33.0); Mean Platelet Volume 11.4 fL (9.4-12.3); Monocytes Absolute Auto 0.3 X10*3/uL (0.1-1.2); Monocytes Percent Auto 6.8 % (2-11); Neutrophils Absolute Auto 2.7 x10*3/uL (2.0-8.3); Neutrophils Percent Auto 60.2 % (45-73); Platelet Count 242 X10*3/uL (160-400); Red Blood Count 4.15 X10*6/uL (4.20-5.50); Red Cell Distribution Width 12.9 % (11.0-16.0); White Blood Count 4.6 X10*3/uL (4.8-10.8)
[2024-03-27 13:52] LABS: Appearance Urine Clear; Color Urine Dark Yellow; Glucose Urine UA Negative (Negative); Leukocyte Esterase Urine Negative (Negative); Nitrite Urine Negative (Negative); PH 7.5 (5.0-9.0); Specific Gravity - Urine >= 1.030 (1.005-1.025); Urine Blood Negative (Negative); Urine Ketones Trace mg/dL (Negative); Urine Protein Trace mg/dL (Neg-Trace)
[2024-03-27 14:42] LABS: Alanine Aminotransferase 18 U/L (0-31); Albumin Level 4.1 g/dL (3.5-5.0); Alkaline Phosphatase 66 U/L (39-117); Aspartate Amino Transferase 26 U/L (5-31); Bilirubin Total 0.6 mg/dL (0.0-1.0); Blood Urea Nitrogen 10 mg/dL (9-16); Calcium 8.8 mg/dL (8.4-10.2); Carbon Dioxide 29 mmol/L (22-29); Chloride 108 mmol/L (96-108); Cholesterol 136 mg/dL (<200); Estimated Glomerular Filt Rate > 60; Glucose Fasting 81 mg/dL (60-99); HDL Cholesterol 45 mg/dL (>40); LDL Cholesterol Calculated 79 mg/dL (<100); Sodium 141 mmol/L (135-145); Total Protein 7.3 g/dL (6.5-8.0); Triglycerides 60 mg/dL (<150)
[2024-03-27 15:04] LABS: Anion Gap 8 (12-20); TSH reflex Free T4 0.19 uIU/mL (0.32-4.0)
[2024-03-28 01:12] LABS: Free T4 (Free Thyroxine) 1.42 ng/dL (0.71-1.85)
== END 2024-03-27 11:01 | disposition home or self-care (01) ==
LOC: HO.HMGCLDS 11:00
PROVIDERS: PCP Nurse Practitioner Family; Visit Provider Nurse Practitioner Family
DX: E66.01 Morbid (severe) obesity due to excess calories (principal); R53.83 Other fatigue
CPT/HCPCS: 36415; 80053; 80061; 81003; 84439; 84443; 85025

== ENCOUNTER 2024-05-15 14:25 | Outpatient (AMB) | payer OTHER, SELFPAY ==
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
[2024-05-15 15:19] VITALS: BP 120/80; PULSE 107; TEMP 37.1; O2SAT 98
== END 2024-05-15 15:41 | disposition home or self-care (01) ==
PROVIDERS: PCP Nurse Practitioner Family; Visit Provider Nurse Practitioner Family
DX: J06.9 Acute upper respiratory infection, unspecified (principal); R11.2 Nausea with vomiting, unspecified; R19.7 Diarrhea, unspecified

== ENCOUNTER → 2024-05-15 14:25 | Outpatient (BNVA) | payer OTHER, SELFPAY | PROVIDERS: PCP Nurse Practitioner Family ==

== ENCOUNTER 2024-06-07 14:54 | Outpatient (REF) | payer OTHER, SELFPAY ==
--- OUTSIDE RECORDS SUMMARY | 2024-06-07 18:32 | XMS_ITS | Clinical Summary ---
Author Organization [facility] Address [address] [place] [address] Care Team Providers Care Auto Specialty Services Manager Name Role Phone Leandro Gomez Primary Care Provider [phone] Allergies Active Allergy Reactions Criticality Noted Date [...] uterine prolapse 07/02/2016 Overview (07/20/2018): Suspension in [place], [place]. Records do not indicate a specific [...] 1-dose 75+ series) 02/07/2047 Insurance [place] [address] Advance Directives Documents on File Type Date Recorded Patient Lead Bi Developer Expl anation Health Care Proxy 02/10/2019 11:30 AM * Presumed Full Code (Latest Code Status on File) Date Activated Date Inactivated Comments 02/15/2019 2:23 PM 02/16/2019 8:16 PM * Full Code Date Activated Date Inactivated Comments 02/15/2019 1:01 PM 02/15/2019 2:23 PM Care Teams Auto Specialty Services Manager Relationship Specialty Start Date End Date Leandro Gomez [address] [place] [address] PCP - General 06/02/18
--- OUTSIDE RECORDS SUMMARY | 2024-06-07 18:32 | XMS_ITS | Continuity of Care Document ---
Author Organization [facility] Address [address] [place] [address] Phone Care Team Providers Care Hot Plate Plywood Press Offbearer Name Role Phone Garrett Burgos MD Unavailable Unavailable Advance Directives Directive Yes / No Effective Date File Name No Information Encounters Encounter Description Practice Location Reason(s) For Visit Diagnoses Date Provider Providers Copied on Encounter [facility] , [address] [place] [address], [facility], tel:[phone] [facility] No Information [facility] Tucker. [address] [place] [address], Critical access hospital, . tel:[phone] Referring Provider: Garrett Burgos MD, [address] [place] [address], Critical access hospital. tel:[phone] Family History Family Member Type Diagnosis Age At Onset No Information Payers Payer name Insurance type Covered libertarian ID Authoriza tion(s) [facility] CI [id number] Social History Type Description Quantity Date Captured [...]
--- OUTSIDE RECORDS SUMMARY | 2024-06-07 18:32 | XMS_ITS | Clinical Summary ---
Author Organization [facility] it Address [address] [place] [address] Care Team Providers Care End Finder Twisting Department Name Role Phone Ian Dumont MD Primary [...] Documents on File Type Date Recorded Patient School Traffic Supervisor Expl anation Health Care Decision (hx) 03/25/2017 AD FORREST DIRECTIVE Health Care Decision (hx) 03/25/2017 AD FORREST DIRECTIVE Health Care Decision (hx) 03/25/2017 AD FORREST DIRECTIVE Care Teams End Finder Twisting Department Relationship Specialty Start Date End Date Ian Dumont MD PCP - General Internal Medicine 06/12/16
--- OUTSIDE RECORDS SUMMARY | 2024-06-07 18:32 | XMS_ITS | Referral Summary ---
Author Organization [facility] Address [address] [place] [address] Care Team Providers Care Machine Fancy Stitcher Name Role Phone Leandro Gomez Primary Care [...] uterine prolapse 07/02/2016 Overview (07/20/2018): Suspension in [place], [place]. Records do not indicate a specific [...] Plan of Treatment Not on file [place] [address] [address] [place] [address] MEDICAID Advance Directives Documents on File Type Date Recorded Patient Coin Purse Framer [facility] Proxy 02/10/2019 11:30 AM * Presumed Full Code (Latest Code Status on File) Date Activated Date Inactivated Comments 02/15/2019 2:23 PM 02/16/2019 8:16 PM * Full Code Date Activated Date Inactivated Comments 02/15/2019 1:01 PM 02/15/2019 2:23 PM Care Teams Machine Fancy Stitcher Relationship Specialty Start Date End Date Leandro Gomez: [phone] [address] [place] [address] PCP - General 06/02/18
[2024-06-13 15:01] LABS: HPV Genotype 16 Negative (Negative); HPV Genotype 18 Negative (Negative); HPV High Risk Negative (Negative)
== END 2024-06-07 14:55 | disposition home or self-care (01) ==
LOC: HO.LNP 14:54
PROVIDERS: PCP Nurse Practitioner Family; Visit Provider Obstetrics & Gynecology
DX: Z01.419 Encounter for gynecological examination (general) (routine) without abnormal findings (principal)
CPT/HCPCS: 87626; 88175

== ENCOUNTER 2024-06-07 14:54 | Outpatient (AMB) | payer OTHER, SELFPAY ==
[2024-06-07 15:08] VITALS: BP 116/72; BMI 29.6
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
--- OUTSIDE RECORDS SUMMARY | 2024-06-07 18:02 | XMS_ITS | Clinical Summary ---
Author Organization [facility] Address [address] [place] [address] Care Team Providers Care Antitank Assault Gunner Name Role Phone Leandro Gomez Primary Care Provider Allergies Active Allergy Reactions Criticality Noted Date Comments Adhesive Tape-Silicones Dermatitis 02/15/2019 Amoxicillin Muscle cramps 07/02/2016 Shellfish Derived Hives 07/20/2018 Medications albuterol 2.5 mg/3 mL (0.083%) nebulizer solution Inhale 1 vial via nebulizer every 4 hours as needed for wheezing. 9 Active multivitamin-Ca -iron-minerals tablet Take by mouth. Activ e clotrimazole (LOTRIMIN) 1% cream Apply topically to the affected area 2 times a day. Apply to affected area 2 8 Active EPINEPHrine (EPIPEN) 0.3 mg/0.3 mL injection syringe 8 Active levothyroxine (SYNTHROID, LEVOTHROID) 150 mcg tablet Take 150 mcg by mouth daily. 9 Active hydrocortisone butyrate 0.1 % cream 9 Active docusate sodium (COLACE) 100 mg capsule Take 1 capsule (100 mg total) by mouth 2 times a day for 7 days. 14 capsule 9 Active acetaminophen (TYLENOL) 325 mg tablet Take 650 mg by mouth every 6 hours as needed for pain. Active traMADoL (ULTRAM) 50 mg tablet Take 50 mg by mouth every 6 hours as needed for pain. 0 Active albuterol (PROAIR HFA,VENTOLIN HFA) 90 mcg inhaler Inhale 1-2 puffs by mouth every 6 hours as needed for wheezing or shortness of breath. Use with spacer. Active amitriptyline (ELAVIL) 10 mg tablet 0 Active gabapentin (NEURONTIN) 100 mg capsule 0 Active methylPREDNISol one (MEDROL) 4 mg tablet 0 Active Active Problems Problem Noted Date Diagnosed Date History of bilateral breast reduction surgery Excess skin of breast 10/10/2019 Pain in surgical scar 10/10/2019 S/P panniculectomy 02/22/2019 Hypothyroidism 07/20/2018 Candidal intertrigo 07/20/2018 Breast ptosis 07/20/2018 Mild intermittent asthma without complication History of uterine prolapse 07/02/2016 Overview (07/20/2018): Suspension in [place], [place]. Records do not indicate a specific type of repair, just rectal prolapse repair and vaginal prolapse repair. Resolved Problems Problem Noted Date Diagnosed Date Resolved Date Panniculitis 07/20/2018 02/15/2019 Family History Medical History Relation Name Comments Diabetes Father Liver cancer Father Stomach cancer Father No Known Problems Mother Relation Name Status Comments Father Alive Liver and gastr ic cancer Mother Alive Social History Tobacco Use Types Packs/Day Years Used Date Smoking Tobacco: Never Smokeless Tobacco: Never Alcohol Use Standard Drinks/Week Comments Yes 0 (1 standard drink = 0.6 oz pur e alcohol) social, rare <1 per month Comments Unknown Sex and Gender Information Value Date Recorded Sex Assigned at Not on file Legal Sex Female 11:08 AM EST Gender Identity Not on file Sexual Orientation Not on file Last Filed Vital Signs Vital Sign Reading Time Taken Comments Blood Pressure 116/82 11/14/2019 10:54 AM EDT Pulse 91 11/14/2019 10:54 AM EDT Temperature 36.8 ??C (98.2 ??F) 02/16/2019 3:27 PM ES T Respiratory Rate 18 02/16/2019 3:27 PM EST Oxygen Saturation 97% 02/16/2019 3:27 PM EST Inhaled Oxygen Concentration - - Weight 94.3 kg (208 lb) 06/19/2020 1:14 PM EDT Height 166.4 cm (5' 5.5 ) 06/19/2020 1:14 PM EDT Body Mass Index 34.09 06/19/2020 1:14 PM EDT Plan of Treatment Health Maintenance Due Date Last Done Comments Cervical Cancer Screening 1972 Cologuard 1972 Colon Cancer Screening 1972 Colonoscopy 1972 FOBT / Fit Test 1972 HIV Screening 1972 HPV and Pap Smear 1972 Hepatitis C Screening 1972 Pap Smear 1972 Sigmoidoscopy 1972 Hepatitis B Vaccines (1 of 3 - 19+ 3-dose series) 08/1990 Pneumococcal Vaccine: 50+ Years (1 of 2 - PCV) 991 DTaP,Tdap,and Td Vaccines (1 - Tdap) 02/07/1994 Mammogram 2012 Zoster Vaccines (1 of 2) 02/07/2022 COVID-19 Vaccine (1 - 2023- season) 2023 Influenza Vaccine (#1) 2023 Alcohol/Substance Use Screening 04/05/2024 Depression Screening and Follow-Up 04/05/2024 Social Drivers of Health Annual Screening 04/05/2024 RSV Vaccine (60+ years old a nd patients) (1 - 1-dose 75+ series) 02/07/2047 [place] [phone] Advance Directives Documents on File Type Date Recorded Patient Nurse Outreach Case Manager Expl anation Health Care Proxy 02/10/2019 11:30 AM * Presumed Full Code (Latest Code Status on File) Date Activated Date Inactivated Comments 02/15/2019 2:23 PM 02/16/2019 8:16 PM * Full Code Date Activated Date Inactivated Comments 02/15/2019 1:01 PM 02/15/2019 2:23 PM Care Teams Antitank Assault Gunner Relationship Specialty Start Date End Date Leandro Gomez [address] [place] [address] PCP - General 06/02/18
--- OUTSIDE RECORDS SUMMARY | 2024-06-07 18:02 | XMS_ITS | Referral Summary ---
Author Organization [facility] Address [address] [place] [address] Care Team Providers Care Strike Out Machine Operator Name Role Phone Leandro Gomez Primary Care [...] uterine prolapse 07/02/2016 Overview (07/20/2018): Suspension in [place], [place]. Records do not indicate a specific type of repair, just rectal prolapse repair and vaginal prolapse repair. Resolved Problems Problem Noted Date Diagnosed Date Resolved Date Panniculitis 07/20/2018 02/15/2019 Social History Tobacco Use Types Packs/Day Years [...] 06/19/2020 1:14 PM EDT Plan of Treatment Not on file [place] [address] [place] [address] MEDICAID Advance Directives Documents on File Type Date Recorded Patient Mobile Ui/Ux Design[facility] 02/10/2019 11:30 AM * Presumed Full Code (Latest Code Status on File) Date Activated Date Inactivated Comments 02/15/2019 2:23 PM 02/16/2019 8:16 PM * Full Code Date Activated Date Inactivated Comments 02/15/2019 1:01 PM 02/15/2019 2:23 PM Care Teams Strike Out Machine Operator Relationship Specialty Start Date End Date Leandro Gomez: [phone] [address] [place] [address] PCP - General 06/02/18
--- OUTSIDE RECORDS SUMMARY | 2024-06-07 18:02 | XMS_ITS | Continuity of Care Document ---
Author Organization [facility] Address [address] [place] [address] Phone Care Team Providers Care Furnace Charger Name Role Phone Garrett Burgos MD Unavailable Unavailable Advance Directives Directive Yes / No Effective Date File Name No Information Encounters Encounter Description Practice Location Reason(s) For Visit Diagnoses Date Provider Providers Copied on Encounter [facility] [address] [place] [address], [facility], tel:[phone] Aubrey Espinosa No Information [facility]. [address] [place] [address], [facility], . tel:[phone] Referring Provider: Garrett Burgos MD, [address] [place] [address], [facility]. tel:[phone] Family History Family Member Type Diagnosis Age At Onset No Information Payers Payer name Insurance type Covered democrat ID Authoriza tion(s) [facility] CI [id number] Social History Type Description Quantity Date Captured [...]
--- OUTSIDE RECORDS SUMMARY | 2024-06-07 18:02 | XMS_ITS | Clinical Summary ---
Author Organization [facility] it Address [address] [place] [address] Care Team Providers Care Freight Service Inspector Name Role Phone Ian Dumont MD Primary Care Provider Unava ilable Social History Tobacco Use Types Packs/Day Years Used Date Smoking Tobacco: Never Assessed Comments Unknown Sex and Gender Information Value Date Recorded Sex Assigned at Not on file Legal Sex Female 12:08 AM EDT Gender Identity Not on file Sexual Orientation Not on file Plan of Treatment Health Maintenance Due Date Last Done Comments Breast Cancer Screening 1970 DTaP,Tdap,and Td Vaccines (1 - Tdap) 02/07/1991 Hepatitis B Vaccines (1 of 3 - 19+ 3-dose series) 02/07/1991 Cervical Cancer Screening: P ap Smear 02/07/1993 Pneumococcal Vaccine: 50+ Ye ars (1 of 1 - PCV) 02/07/2022 Zoster Vaccines (1 of 2) 02/07/2022 Colorectal Cancer Screening: Colonoscopy 03/18/2022 Depression Screening 03/18/2022 HIV Screening 03/18/2022 Hepatitis C Screening 03/18/2022 Social Influencers of Health Screening 03/18/2022 COVID-19 Vaccine ( - 2023-2 5 season) 2023 Influenza Vaccine (#1) 2023 HIB Vaccines Aged Out No longer eligi ble based on patient's age to complete this topic HPV Vaccines Aged Out No longer eligi ble based on patient's age to complete this topic Hepatitis A Vaccines Aged Out No long er eligible based on patient's age to complete this topic IPV Vaccines Aged Out No longer eligi ble based on patient's age to complete this topic MMR Vaccines Aged Out No longer eligi ble based on patient's age to complete this topic Meningococcal ACWY Vaccine Aged Out N o longer eligible based on patient's age to complete this topic Meningococcal B Vacine Aged Out No lo nger eligible based on patient's age to complete this topic Pneumococcal Vaccine: Pediat rics (0 to 5 Years) and At-Risk Patients (6 to 64 Years) Aged Out No longer eligible b ased on patient's age to complete this topic RSV Immunization Patients Un annemarie 20 months Aged Out No longer eligible b ased on patient's age to complete this topic Varicella Vaccines Aged Out No longer eligible based on patient's age to complete this topic Advance Directives Documents on File Type Date Recorded Patient Assistant Child Care Teacher Expl anation Health Care Decision (hx) 03/25/2017 AD FORREST DIRECTIVE Health Care Decision (hx) 03/25/2017 AD FORREST DIRECTIVE Health Care Decision (hx) 03/25/2017 AD FORREST DIRECTIVE Care Teams Freight Service Inspector Relationship Specialty Start Date End Date Ian Dumont MD PCP - General Internal Medicine 06/12/16
== END 2024-06-07 15:24 | disposition home or self-care (01) ==
LOC: HO.HWS 14:54
PROVIDERS: PCP Nurse Practitioner Family; Visit Provider Obstetrics & Gynecology
DX: Z01.419 Encounter for gynecological examination (general) (routine) without abnormal findings (principal)
CPT/HCPCS: 99396; 99459

== ENCOUNTER 2024-06-07 15:24 | Outpatient (REF) | payer OTHER, SELFPAY ==
[2024-06-07 18:16] LABS: Alanine Aminotransferase 15 U/L (0-31); Albumin Level 3.9 g/dL (3.5-5.0); Alkaline Phosphatase 60 U/L (39-117); Anion Gap 9 (12-20); Aspartate Amino Transferase 22 U/L (5-31); Bilirubin Total 0.3 mg/dL (0.0-1.0); Blood Urea Nitrogen 8 mg/dL (9-16); Calcium 9.4 mg/dL (8.4-10.2); Carbon Dioxide 28 mmol/L (22-29); Chloride 108 mmol/L (96-108); Estimated Glomerular Filt Rate > 60; Glucose Random 89 mg/dL (60-115); Potassium 3.8 mmol/L (3.3-5.1); Sodium 141 mmol/L (135-145)
[2024-06-07 18:39] LABS: TSH reflex Free T4 0.32 uIU/mL (0.32-4.0)
--- OUTSIDE RECORDS SUMMARY | 2024-06-07 18:40 | XMS_ITS | Continuity of Care Document ---
Author Organization [facility] Address [address] [place] [address] Phone Care Team Providers Care Stationary Boiler Fireman Name Role Phone Garrett Burgos MD Unavailable Unavailable Advance Directives Directive Yes / No Effective Date File Name No Information Encounters Encounter Description Practice Location Reason(s) For Visit Diagnoses Date Provider Providers Copied on Encounter [facility] , [address] [place] [address], [facility], tel:[phone] [facility] No Information [facility]. [address] [place] [address], [facility], . tel:[phone] Referring Provider: Garrett Burgos MD, [address] [place] [address], [facility]. tel:[phone] Family History Family Member Type Diagnosis Age At Onset No Information Payers Payer name Insurance type Covered constitution party ID Authoriza tion(s) [facility] CI [id number] Social History Type Description Quantity Date Captured [...]
== END 2024-06-07 15:25 | disposition home or self-care (01) ==
LOC: HO.LAB 15:24
PROVIDERS: PCP Nurse Practitioner Family; Visit Provider Nurse Practitioner Family
DX: R79.89 Other specified abnormal findings of blood chemistry (principal); E03.9 Hypothyroidism, unspecified
CPT/HCPCS: 36415; 80053; 84443

== ENCOUNTER 2024-07-25 08:03 | Outpatient (AMB) | payer OTHER, SELFPAY ==
[2024-07-25 08:04] VITALS: BP 108/74; PULSE 77; TEMP 36.6; O2SAT 100; BMI 27.8
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
--- OUTSIDE RECORDS SUMMARY | 2024-07-25 08:15 | XMS_ITS | Continuity of Care Document ---
Author Organization [facility] Address [address] [place] [address] Phone Care Team Providers Care Linux Server Engineer Name Role Phone Garrett Burgos MD Unavailable Unavailable Advance Directives Directive Yes / No Effective Date File Name No Information Encounters Encounter Description Practice Location Reason(s) For Visit Diagnoses Date Provider Providers Copied on Encounter [facility] , [address] [place] [address], [facility], tel:[phone] [facility] No Information [facility]. [address] [place] [address], [facility], . tel:[phone] Referring Provider: Garrett Burgos MD, [address] [place] [address], [facility]. tel:[phone] Family History Family Member Type Diagnosis Age At Onset No Information Payers Payer name Insurance type Covered libertarian ID Authoriza tion(s) [facility] CI [id number] Social History Type Description Quantity Date Captured [...]
--- OUTSIDE RECORDS SUMMARY | 2024-07-25 08:15 | XMS_ITS | Clinical Summary ---
Author Organization [facility] Address [address] [place] [address] Care Team Providers Care Travel Registered Nurse Icu Name Role Phone Ian Dumont MD Primary [...] - 2023-2 5 season) 2023 Influenza Vaccine (Season Ended) 2024 HIB Vaccines Aged Out No longer eligi [...] age to complete this topic Meningococcal B Vaccine Aged Out No l onger eligible based on patient's age to complete [...] Documents on File Type Date Recorded Patient Sewage Disposal Worker Expl anation Health Care Decision (hx) 03/25/2017 AD FORREST DIRECTIVE Health Care Decision (hx) 03/25/2017 AD FORREST DIRECTIVE Health Care Decision (hx) 03/25/2017 AD FORREST DIRECTIVE Care Teams Travel Registered Nurse Icu Relationship Specialty Start Date End Date Ian Dumont MD PCP - General Internal Medicine 06/12/16
--- OUTSIDE RECORDS SUMMARY | 2024-07-25 08:16 | XMS_ITS | Patient Health Record ---
Author Organization [facility] Billing Info Address [address] [place], [place] [address] Care Team Providers Care Shopping Investigator Name Role Phone LEONA GUEVARA Unavailable [phone] [facility] Unavailable Unavailable Reason For Referral No Information Plan Of Treatment No Information Insurance Providers Payer Name Payer Address Payer Phone Subscriber Number Group Number Insured Name Patient Relationship to Insured Coverage Start Date Coverage End Date [facility] [address] [address] [place], [place] [id number] [place] Self - patient is the insured 9
--- OUTSIDE RECORDS SUMMARY | 2024-07-25 08:16 | XMS_ITS | Referral Summary ---
Author Organization [facility] Address [address] [place] [address] Care Team Providers Care Exchange Administrator Name Role Phone Leandro Gomez Primary Care [...] uterine prolapse 07/02/2016 Overview (07/20/2018): Suspension in [place], [place]. Records do not indicate a specific [...] Plan of Treatment Not on file Insurance [employer] MEDICA[employer] Advance Directives Documents on File Type Date Recorded Patient Explosive Specialist Expl [facility] Health Care Proxy 02/10/2019 11:30 AM * Presumed Full Code (Latest Code Status on File) Date Activated Date Inactivated Comments 02/15/2019 2:23 PM 02/16/2019 8:16 PM * Full Code Date Activated Date Inactivated Comments 02/15/2019 1:01 PM 02/15/2019 2:23 PM Care Teams Exchange Administrator Relationship Specialty Start Date End Date Leandro Gomez [address] [place] [address] PCP - General 06/02/18
--- OUTSIDE RECORDS SUMMARY | 2024-07-25 08:16 | XMS_ITS | Clinical Summary ---
Author Organization [facility] Address [address] [place] [address] Care Team Providers Care Strength And Conditioning Coach Name Role Phone Leandro Gomez Primary Care [...] uterine prolapse 07/02/2016 Overview (07/20/2018): Suspension in [place], [place]. Records do not indicate a specific [...] COVID-19 Vaccine (1 - 2023- season) 2023 Alcohol/Substance Use Screening 04/05/2024 Depression Screening and Follow-Up 04/05/2024 Social Drivers of Health Annual Screening 04/05/2024 Influenza Vaccine (Season Ended) 2024 RSV Vaccine (60+ years old a nd patients) (1 - 1-dose 75+ series) 02/07/2047 Insurance [employer] Advance Directives Documents on File Type Date Recorded Patient Director Of Financial Reporting Expl anation Health Care Proxy 02/10/2019 11:30 AM * Presumed Full Code (Latest Code Status on File) Date Activated Date Inactivated Comments 02/15/2019 2:23 PM 02/16/2019 8:16 PM * Full Code Date Activated Date Inactivated Comments 02/15/2019 1:01 PM 02/15/2019 2:23 PM Care Teams Strength And Conditioning Coach Relationship Specialty Start Date End Date Leandro Gomez [address] [place] [address] PCP - General 06/02/18
== END 2024-07-25 09:12 | disposition home or self-care (01) ==
LOC: HO.HMCC 08:03
PROVIDERS: PCP Nurse Practitioner Family; Visit Provider Nurse Practitioner Family
DX: M79.7 Fibromyalgia (principal); E66.01 Morbid (severe) obesity due to excess calories; E16.2 Hypoglycemia, unspecified; Z68.27 Body mass index [BMI] 27.0-27.9, adult

== ENCOUNTER → 2024-07-25 08:03 | Outpatient (BNVA) | payer OTHER, SELFPAY | PROVIDERS: PCP Nurse Practitioner Family; Visit Provider Nurse Practitioner Family | DX: M79.7 Fibromyalgia (principal); E66.01 Morbid (severe) obesity due to excess calories; Z68.27 Body mass index [BMI] 27.0-27.9, adult; E16.2 Hypoglycemia, unspecified | CPT/HCPCS: 96127 ==

== ENCOUNTER 2024-08-03 08:26 | Outpatient (REF) | payer OTHER, SELFPAY ==
--- OUTSIDE RECORDS SUMMARY | 2024-08-03 08:41 | XMS_ITS | Patient Health Record ---
Author Organization [facility] Billing Info Address [address] [place], [place] [id number] Care Team Providers Care Learning Solutions Specialist Name Role Phone LEONA GUEVARA Unavailable [phone] [facility], [facility] Unavailable Unavailable Reason For Referral No Information Plan Of Treatment No Information Insurance Providers Payer Name Payer Address Payer Phone Subscriber Number Group Number Insured Name Patient Relationship to Insured Coverage Start Date Coverage End Date [facility] [address] [address] [place], [place] [id number] Arelis South Self - patient is the insured 9
--- OUTSIDE RECORDS SUMMARY | 2024-08-03 08:41 | XMS_ITS | Continuity of Care Document ---
Author Organization [facility] Address [address] [place] [address] Phone Care Team Providers Care Vice President Process Name Role Phone Garrett Burgos MD Unavailable Unavailable Advance Directives Directive Yes / No Effective Date File Name No Information Encounters Encounter Description Practice Location Reason(s) For Visit Diagnoses Date Provider Providers Copied on Encounter [facility] , [address] [place] [address], [facility], tel:[phone] [facility] No Information [facility]. [address] [place] [address], [facility], . tel:[phone] Referring Provider: Garrett Burgos MD, [address] [place] [address], [facility]. tel:[phone] Family History Family Member Type Diagnosis Age At Onset No Information Payers Payer name Insurance type Covered libertarian ID Authoriza tion(s) [facility] CI [id number] Social History Type Description Quantity Date Captured [...]
--- OUTSIDE RECORDS SUMMARY | 2024-08-03 08:41 | XMS_ITS | Clinical Summary ---
Author Organization [facility] it Address [address] [place] [address] Care Team Providers Care Anatomic Pathology Manager Name Role Phone Ian Dumont MD Primary [...] Documents on File Type Date Recorded Patient Clam Shucker Expl anation Health Care Decision (hx) 03/25/2017 AD FORREST DIRECTIVE Health Care Decision (hx) 03/25/2017 AD FORREST DIRECTIVE Health Care Decision (hx) 03/25/2017 AD FORREST DIRECTIVE Care Teams Anatomic Pathology Manager Relationship Specialty Start Date End Date Ian Dumont MD PCP - General Internal Medicine 06/12/16
--- OUTSIDE RECORDS SUMMARY | 2024-08-03 08:41 | XMS_ITS | Referral Summary ---
Author Organization [facility] Address [address] [place] [address] Care Team Providers Care Stereoptician Name Role Phone Leandro Gomez Primary Care [...] uterine prolapse 07/02/2016 Overview (07/20/2018): Suspension in [place], [place]. Records do not indicate a specific [...] Treatment Not on file Insurance [place] [phone] Advance Directives Documents on File Type Date Recorded Patient Audio Specialist Expl [facility] Health Care Proxy 02/10/2019 11:30 AM * Presumed Full Code (Latest Code Status on File) Date Activated Date Inactivated Comments 02/15/2019 2:23 PM 02/16/2019 8:16 PM * Full Code Date Activated Date Inactivated Comments 02/15/2019 1:01 PM 02/15/2019 2:23 PM Care Teams Stereoptician Relationship Specialty Start Date End Date Leandro Gomez [address] [place] [address] PCP - General 06/02/18
--- OUTSIDE RECORDS SUMMARY | 2024-08-03 08:41 | XMS_ITS | Clinical Summary ---
Author Organization [facility] Address [address] [place] [address] Care Team Providers Care Poleyard Supervisor Name Role Phone Leandro Gomez Primary Care [...] uterine prolapse 07/02/2016 Overview (07/20/2018): Suspension in [place], [place]. Records do not indicate a specific [...] Documents on File Type Date Recorded Patient Framing Manager Expl anation Health Care Proxy 02/10/2019 11:30 AM * Presumed Full Code (Latest Code Status on File) Date Activated Date Inactivated Comments 02/15/2019 2:23 PM 02/16/2019 8:16 PM * Full Code Date Activated Date Inactivated Comments 02/15/2019 1:01 PM 02/15/2019 2:23 PM Care Teams Poleyard Supervisor Relationship Specialty Start Date End Date Leandro Gomez [address] [place] [address] PCP - General 06/02/18
[2024-08-03 08:44] LABS: MANUAL DIFF FLAG NO
[2024-08-03 09:31] LABS: Basophils Percent Auto 0.9 % (0-2); Eosinophils Absolute Auto 0.3 X10*3/uL (0.0-0.4); Hematocrit 38.3 % (37.0-47.0); Hemoglobin 12.6 g/dl (12.0-16.0); Imm Gran Abs Auto 0.01 X10*3/uL (0.00-0.03); Imm Gran Pct Auto 0.2 % (0.0-0.4); Lymphocytes Absolute Auto 1.5 X10*3/uL (1.2-4.9); Lymphocytes Percent Auto 32.7 % (20-40); Mean Corpuscular HGB Conc 32.9 g/dl (31.0-35.0); Mean Corpuscular Volume 94.1 fL (80.0-98.0); Mean Platelet Volume 11.3 fL (9.4-12.3); Monocytes Absolute Auto 0.4 X10*3/uL (0.1-1.2); Monocytes Percent Auto 7.9 % (2-11); Neutrophils Absolute Auto 2.3 x10*3/uL (2.0-8.3); Neutrophils Percent Auto 51.3 % (45-73); Platelet Count 241 X10*3/uL (160-400); Red Blood Count 4.07 X10*6/uL (4.20-5.50); White Blood Count 4.6 X10*3/uL (4.8-10.8)
[2024-08-03 09:32] LABS: Appearance Urine Clear; Color Urine Yellow; Glucose Urine UA Negative (Negative); Leukocyte Esterase Urine Negative (Negative); Nitrite Urine Negative (Negative); Specific Gravity - Urine 1.025 (1.005-1.025); Urine Blood Negative (Negative); Urine Ketones Trace mg/dL (Negative); Urine Protein Negative (Neg-Trace)
[2024-08-03 10:14] LABS: Alanine Aminotransferase 15 U/L (0-31); Alkaline Phosphatase 65 U/L (39-117); Anion Gap 11 (12-20); Aspartate Amino Transferase 21 U/L (5-31); Bilirubin Total 0.3 mg/dL (0.0-1.0); Blood Urea Nitrogen 11 mg/dL (9-16); Calcium 9.4 mg/dL (8.4-10.2); Carbon Dioxide 29 mmol/L (22-29); Chloride 105 mmol/L (96-108); Cholesterol 185 mg/dL (<200); Estimated Glomerular Filt Rate > 60; Glucose Fasting 81 mg/dL (60-99); HDL Cholesterol 44 mg/dL (>40); LDL Cholesterol Calculated 126 mg/dL (<100); Potassium 3.6 mmol/L (3.3-5.1); Sodium 141 mmol/L (135-145); Triglycerides 79 mg/dL (<150)
[2024-08-03 10:42] LABS: TSH reflex Free T4 3.39 uIU/mL (0.32-4.0)
== END 2024-08-03 08:27 | disposition home or self-care (01) ==
LOC: HO.LAB 08:26
PROVIDERS: PCP Nurse Practitioner Family; Visit Provider Nurse Practitioner Family
DX: M79.7 Fibromyalgia (principal); Z13.6 Encounter for screening for cardiovascular disorders
CPT/HCPCS: 36415; 80053; 80061; 81003; 84443; 85025

== ENCOUNTER → 2024-08-12 09:15 | Outpatient (BNV) | payer OTHER, SELFPAY | PROVIDERS: PCP Nurse Practitioner Family; Visit Provider Internal Medicine | DX: Z12.31 Encounter for screening mammogram for malignant neoplasm of breast (principal) | CPT/HCPCS: 77063; 77067 ==

== ENCOUNTER 2024-08-12 09:18 | Outpatient (REF) | payer OTHER, SELFPAY ==
--- OUTSIDE RECORDS SUMMARY | 2024-08-12 09:21 | XMS_ITS | Referral Summary ---
Author Organization [facility] Address [address] [place] [address] Care Team Providers Care Human Factors Specialist Name Role Phone Leandro Gomez Primary Care [...] uterine prolapse 07/02/2016 Overview (07/20/2018): Suspension in [place], [place]. Records do not indicate a specific [...] Documents on File Type Date Recorded Patient Surgical Supplies Sterilizer Expl [facility] Health Care Proxy 02/10/2019 11:30 AM * Presumed Full Code (Latest Code Status on File) Date Activated Date Inactivated Comments 02/15/2019 2:23 PM 02/16/2019 8:16 PM * Full Code Date Activated Date Inactivated Comments 02/15/2019 1:01 PM 02/15/2019 2:23 PM Care Teams Human Factors Specialist Relationship Specialty Start Date End Date Leandro Gomez [address] [place] [address] PCP - General 06/02/18
--- OUTSIDE RECORDS SUMMARY | 2024-08-12 09:21 | XMS_ITS | Patient Health Record ---
Author Organization [facility] Billing Info Address [address] [place], [place] [id number] Care Team Providers Care Investigator Name Role Phone LEONA GUEVARA Unavailable [phone] [facility], [facility] Unavailable Unavailable Reason For Referral No Information Plan Of Treatment No Information Insurance Providers Payer Name Payer Address Payer Phone Subscriber Number Group Number Insured Name Patient Relationship to Insured Coverage Start Date Coverage End Date [facility] [address] [address] [place], [place] [id number] Arelis South Self - patient is the insured 9
--- OUTSIDE RECORDS SUMMARY | 2024-08-12 09:21 | XMS_ITS | Clinical Summary ---
Author Organization [facility] Address [address] [place] [address] Care Team Providers Care Sliver Machine Operator Name Role Phone Ian Dumont MD Primary [...] Documents on File Type Date Recorded Patient Statistics Teacher Expl anation Health Care Decision (hx) 03/25/2017 AD FORREST DIRECTIVE Health Care Decision (hx) 03/25/2017 AD FORREST DIRECTIVE Health Care Decision (hx) 03/25/2017 AD FORREST DIRECTIVE Care Teams Sliver Machine Operator Relationship Specialty Start Date End Date Ian Dumont MD PCP - General Internal Medicine 06/12/16
--- OUTSIDE RECORDS SUMMARY | 2024-08-12 09:21 | XMS_ITS | Clinical Summary ---
Author Organization [facility] Address [address] [place] [address] Care Team Providers Care Quote Clerk Name Role Phone Leandro Gomez Primary Care [...] uterine prolapse 07/02/2016 Overview (07/20/2018): Suspension in [place], [place]. Records do not indicate a specific [...] Documents on File Type Date Recorded Patient Mechanical Maintenance Expl anation Health Care Proxy 02/10/2019 11:30 AM * Presumed Full Code (Latest Code Status on File) Date Activated Date Inactivated Comments 02/15/2019 2:23 PM 02/16/2019 8:16 PM * Full Code Date Activated Date Inactivated Comments 02/15/2019 1:01 PM 02/15/2019 2:23 PM Care Teams Quote Clerk Relationship Specialty Start Date End Date Leandro Gomez [address] [place] [address] PCP - General 06/02/18
== END 2024-08-12 09:19 | disposition home or self-care (01) ==
LOC: HO.MAMMO 09:18
PROVIDERS: PCP Nurse Practitioner Family; Visit Provider Obstetrics & Gynecology
DX: Z12.31 Encounter for screening mammogram for malignant neoplasm of breast (principal)
CPT/HCPCS: 77063; 77067

== ENCOUNTER → 2024-09-07 16:57 | Outpatient (BNVA) | payer OTHER, SELFPAY | PROVIDERS: PCP Nurse Practitioner Family; Visit Provider Nurse Practitioner Family ==

== ENCOUNTER 2024-09-25 11:29 | Outpatient (AMB) | payer OTHER, SELFPAY ==
[2024-09-25 12:28] VITALS: BP 90/60; PULSE 130; TEMP 36.7; O2SAT 98; BMI 25.3
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
--- OUTSIDE RECORDS SUMMARY | 2024-09-25 13:10 | XMS_ITS | Clinical Summary ---
Author Organization [facility] Address [address] [place] [address] Care Team Providers Care Audit Associate Name Role Phone Ian Dumont MD Primary [...] Documents on File Type Date Recorded Patient Steam Roller Operator Expl anation Health Care Decision (hx) 03/25/2017 AD FORREST DIRECTIVE Health Care Decision (hx) 03/25/2017 AD FORREST DIRECTIVE Health Care Decision (hx) 03/25/2017 AD FORREST DIRECTIVE Care Teams Audit Associate Relationship Specialty Start Date End Date Ian Dumont MD PCP - General Internal Medicine 06/12/16
== END 2024-09-25 12:50 | disposition home or self-care (01) ==
PROVIDERS: PCP Nurse Practitioner Family; Visit Provider Nurse Practitioner Family
DX: S30.0XXA Contusion of lower back and pelvis, initial encounter (principal)

== ENCOUNTER 2024-09-25 11:29 | Outpatient (REF) | payer OTHER, SELFPAY ==
--- NOTE | ~2024-09-25 | XR_ITS ---
EXAMINATION: XR SACRUM COCCYX 2 OR MORE VIEWS HISTORY: S30.0XXA - Contusion of lower back and pelvis, initial encounter COMPARISON: There are no prior studies available for comparison. FINDINGS: Three views of the sacrum and coccyx are submitted. Osseous mineralization is normal. There is widening of an interspace of the lower sacrum, which could represent a fracture. The bones are intact. The sacroiliac joints are maintained. There is degenerative disc disease at L5-S1. XR/XR sacrum coccyx min 2V IMPRESSION: Widening of an interspace of the lower sacrum, which could represent a fracture through this region. Electronically signed by: Jack Stockton MD 09/25/2024 01:38 PM EDT
== END 2024-09-25 11:30 | disposition home or self-care (01) ==
LOC: HO.HMGCX 11:29
PROVIDERS: PCP Nurse Practitioner Family; Visit Provider Nurse Practitioner Family
DX: S30.0XXA Contusion of lower back and pelvis, initial encounter (principal); W18.30XA Fall on same level, unspecified, initial encounter; Y93.9 Activity, unspecified; Y92.009 Unspecified place in unspecified non-institutional (private) residence as the place of occurrence of the external cause; Y99.9 Unspecified external cause status
CPT/HCPCS: 72220

== ENCOUNTER → 2024-09-25 12:51 | Outpatient (BNV) | payer OTHER, SELFPAY | PROVIDERS: PCP Nurse Practitioner Family; Visit Provider Radiology Diagnostic Radiology | DX: M53.3 Sacrococcygeal disorders, not elsewhere classified (principal) | CPT/HCPCS: 72220 ==

== ENCOUNTER 2024-10-03 06:58 | Outpatient (AMB) | payer OTHER, SELFPAY ==
--- OUTSIDE RECORDS SUMMARY | 2011-02-11 06:40 | XMS_ITS | Continuity of Care Document ---
Author Organization [facility] Address [address] [place] [address] Phone Care Team Providers Care Machine Container Washer Name Role Phone Garrett Burgos MD Unavailable Unavailable Advance Directives Directive Yes / No Effective Date File Name No Information Encounters Encounter Description Practice Location Reason(s) For Visit Diagnoses Date Provider Providers Copied on Encounter [facility] , [address] [place] [address], [facility], tel:[phone] [facility] No Information [facility] Tucker. [address] [place] [address], [facility], . tel:[phone] Referring Provider: Garrett Burgos MD, [address] [place] [address], [facility]. tel:[phone] Family History Family Member Type Diagnosis Age At Onset No Information Payers Payer name Insurance type Covered republican ID Authoriza tion(s) [facility] CI [id number] Social History Type Description Quantity Date Captured [...]
--- OUTSIDE RECORDS SUMMARY | 2024-10-03 07:01 | XMS_ITS | Patient Health Record ---
Author Organization [facility] Billing Info Address [address] [place], [place] [address] Care Team Providers Care Home Advisor Name Role Phone LEONA GUEVARA Unavailable [phone] [facility], [facility] Unavailable Unavailable Reason For Referral No Information Plan Of Treatment No Information Insurance Providers Payer Name Payer Address Payer Phone Subscriber Number Group Number Insured Name Patient Relationship to Insured Coverage Start Date Coverage End Date [facility] [address] [address] [place], [place] [id number] Arelis South Self - patient is the insured 9
--- OUTSIDE RECORDS SUMMARY | 2024-10-03 07:01 | XMS_ITS | Clinical Summary ---
Author Organization [facility] Address [address] [place] [address] Care Team Providers Care Disability Representative Name Role Phone Ian Dumont MD Primary [...] Documents on File Type Date Recorded Patient Berry Grower Expl anation Health Care Decision (hx) 03/25/2017 AD FORREST DIRECTIVE Health Care Decision (hx) 03/25/2017 AD FORREST DIRECTIVE Health Care Decision (hx) 03/25/2017 AD FORREST DIRECTIVE Care Teams Disability Representative Relationship Specialty Start Date End Date Ian Dumont MD PCP - General Internal Medicine 06/12/16
--- OUTSIDE RECORDS SUMMARY | 2024-10-03 07:01 | XMS_ITS | Referral Summary ---
Author Organization [facility] Address [address] [place] [address] Care Team Providers Care Ship'S Cook Name Role Phone Leandro Gomez Primary Care [...] uterine prolapse 07/02/2016 Overview (07/20/2018): Suspension in [place], [place]. Records do not indicate a specific [...] 91 11/14/2019 10:54 AM EDT Temperature 36.8 C (98.2 F) 02/16/2019 3:27 PM EST Respiratory Rate 18 02/16/2019 3:27 PM EST [...] Documents on File Type Date Recorded Patient Checker In Expl [facility] Health Care Proxy 02/10/2019 11:30 AM * Presumed Full Code (Latest Code Status on File) Date Activated Date Inactivated Comments 02/15/2019 2:23 PM 02/16/2019 8:16 PM * Full Code Date Activated Date Inactivated Comments 02/15/2019 1:01 PM 02/15/2019 2:23 PM Care Teams Ship'S Cook Relationship Specialty Start Date End Date Leandro Gomez [address] [place] [address] PCP - General 06/02/18
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
== END 2024-10-03 08:08 | disposition home or self-care (01) ==
LOC: HO.HMCC 06:59
PROVIDERS: PCP Nurse Practitioner Family; Visit Provider Nurse Practitioner Family
DX: S30.0XXA Contusion of lower back and pelvis, initial encounter (principal); W19.XXXA Unspecified fall, initial encounter; S32.10XA Unspecified fracture of sacrum, initial encounter for closed fracture

== ENCOUNTER 2024-10-12 09:06 | Outpatient (AMB) | payer OTHER, SELFPAY ==
[2024-10-12 09:08] VITALS: BP 98/62; PULSE 83; O2SAT 97; BMI 25.1
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
--- OUTSIDE RECORDS SUMMARY | 2024-10-12 09:31 | XMS_ITS | Patient Health Record ---
Author Organization [facility] Physician Tracey price Billing Info Address [address] [place], [place] [id number] Care Team Providers Care Tile Sorter Name Role Phone LEONA GUEVARA Unavailable [phone] [facility], [facility] Unavailable Unavailable Reason For Referral No Information Plan Of Treatment No Information Insurance Providers Payer Name Payer Address Payer Phone Subscriber Number Group Number Insured Name Patient Relationship to Insured Coverage Start Date Coverage End Date [facility] [address] [address] [place], [place] [id number] [place] Self - patient is the insured 9
--- OUTSIDE RECORDS SUMMARY | 2024-10-12 09:31 | XMS_ITS | Referral Summary ---
Author Organization [facility] Address [address] [place] [address] Care Team Providers Care Shaping Machine Operator Name Role Phone Leandro Gomez [...] uterine prolapse 07/02/2016 Overview (07/20/2018): Suspension in [place], [place]. Records do not indicate a specific [...] Documents on File Type Date Recorded Patient Grain Loader Expl [facility] Health Care Proxy 02/10/2019 11:30 AM * Presumed Full Code (Latest Code Status on File) Date Activated Date Inactivated Comments 02/15/2019 2:23 PM 02/16/2019 8:16 PM * Full Code Date Activated Date Inactivated Comments 02/15/2019 1:01 PM 02/15/2019 2:23 PM Care Teams Shaping Machine Operator Relationship Specialty Start Date End Date Leandro Gomez [address] [place] [address] PCP - General 06/02/18
--- OUTSIDE RECORDS SUMMARY | 2024-10-12 09:31 | XMS_ITS | Clinical Summary ---
Author Organization [facility] Address [address] [place] [address] Care Team Providers Care Trial Court Judge Name Role Phone Ian Dumont MD Primary [...] 2023-2 5 season) 2023 Influenza Vaccine (#1) 2024 HIB Vaccines Aged Out No longer [...] Documents on File Type Date Recorded Patient Infrastructure Technician Expl anation Health Care Decision (hx) 03/25/2017 AD FORREST DIRECTIVE Health Care Decision (hx) 03/25/2017 AD FORREST DIRECTIVE Health Care Decision (hx) 03/25/2017 AD FORREST DIRECTIVE Care Teams Trial Court Judge Relationship Specialty Start Date End Date Ian Dumont MD PCP - General Internal Medicine 06/12/16
== END 2024-10-12 10:10 | disposition home or self-care (01) ==
LOC: HO.HMCC 09:06
PROVIDERS: PCP Nurse Practitioner Family; Visit Provider Nurse Practitioner Family
DX: Z00.01 Encounter for general adult medical examination with abnormal findings (principal); S32.10XA Unspecified fracture of sacrum, initial encounter for closed fracture; E55.9 Vitamin D deficiency, unspecified

== ENCOUNTER 2024-11-21 12:41 | Outpatient (AMB) | payer OTHER, SELFPAY ==
[2024-11-21 12:51] VITALS: BP 100/72; PULSE 80; TEMP 36.8; O2SAT 98; BMI 24.1
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
--- OUTSIDE RECORDS SUMMARY | 2024-11-21 13:52 | XMS_ITS | Clinical Summary ---
[facility] Organization [facility] Address [address] [place] [address] Care Team Providers Care Market Investigator Name Role Phone Ian Dumont MD Primary [...] 2) 02/07/2022 Colorectal Cancer Screening: Colonoscopy 03/18/2022 HIV Screening 03/18/2022 Hepatitis C Screening 03/18/2022 Social Influencers of Health Screening 03/18/2022 COVID-19 Vaccine (1 - 2023-2 5 season) 2023 Depression Screening 04/05/2024 Influenza Vaccine (#1) 2024 HIB Vaccines Aged [...] Documents on File Type Date Recorded Patient Trade Manager Expl anation Health Care Decision (hx) 03/25/2017 AD FORREST DIRECTIVE Health Care Decision (hx) 03/25/2017 AD FORREST DIRECTIVE Health Care Decision (hx) 03/25/2017 AD FORREST DIRECTIVE Care Teams Market Investigator Relationship Specialty Start Date End Date Ian Dumont MD PCP - General Internal Medicine 06/12/16
--- OUTSIDE RECORDS SUMMARY | 2024-11-21 13:52 | XMS_ITS | Patient Health Record ---
Author Organization [facility] Billing Info Address [address] [place], [place] [id number] Care Team Providers Care Chief Embalmer Name Role Phone LEONA GUEVARA Unavailable [phone] [facility], [facility] Unavailable Unavailable Reason For Referral No Information Plan Of Treatment No Information Insurance Providers Payer Name Payer Address Payer Phone Subscriber Number Group Number Insured Name Patient Relationship to Insured Coverage Start Date Coverage End Date [facility] [address] [address] [place], [place] [id number] [place] Self - patient is the insured 9
--- OUTSIDE RECORDS SUMMARY | 2024-11-21 13:53 | XMS_ITS | Clinical Summary ---
Author Organization [facility] Address [address] [place] [address] Care Team Providers Care Numerical Control Nesting Operator Name Role Phone Leandro Gomez Primary [...] uterine prolapse 07/02/2016 Overview (07/20/2018): Suspension in [place], [place]. Records do not indicate a specific [...] of 2) 02/07/2022 COVID-19 Vaccine (1 - season) 2023 Alcohol/Substance Use Screening 04/05/2024 Depression Screening and Follow-Up 04/05/2024 Social Drivers of Health Annual Screening 04/05/2024 Influenza Vaccine (#1) 2024 RSV Vaccine (60+ years old a nd patients) (1 - 1-dose 75+ series) 02/07/2047 Insurance [employer] Advance Directives Documents on File Type Date Recorded Patient Adobe Ball Mixer Expl anation Health Care Proxy 02/10/2019 11:30 AM * Presumed Full Code (Latest Code Status on File) Date Activated Date Inactivated Comments 02/15/2019 2:23 PM 02/16/2019 8:16 PM * Full Code Date Activated Date Inactivated Comments 02/15/2019 1:01 PM 02/15/2019 2:23 PM Care Teams Numerical Control Nesting Operator Relationship Specialty Start Date End Date Leandro Gomez [address] [place] [address] PCP - General 06/02/18
== END 2024-11-21 14:29 | disposition home or self-care (01) ==
PROVIDERS: PCP Nurse Practitioner Family; Visit Provider Physician Assistant Medical
DX: R11.2 Nausea with vomiting, unspecified (principal); R19.7 Diarrhea, unspecified; R11.10 Vomiting, unspecified

== ENCOUNTER 2024-11-21 12:41 | Outpatient (REF) | payer OTHER, SELFPAY ==
[2024-11-21 16:13] LABS: MANUAL DIFF FLAG NO
[2024-11-21 16:33] LABS: Hematocrit 39.9 % (37.0-47.0); Hemoglobin 13.4 g/dl (12.0-16.0); Imm Gran Abs Auto 0.01 X10*3/uL (0.00-0.03); Imm Gran Pct Auto 0.2 % (0.0-0.4); Lymphocytes Absolute Auto 2.0 X10*3/uL (1.2-4.9); Mean Corpuscular HGB Conc 33.6 g/dl (31.0-35.0); Mean Corpuscular Hemoglobin 31.7 pg (27.0-33.0); Mean Corpuscular Volume 94.3 fL (80.0-98.0); NRBC Abs Auto 0.000 X10*3/uL (0.0-0.012); NRBC Pct Auto 0.0 /100WBC (0.0-0.2); Platelet Count 258 X10*3/uL (160-400); Red Blood Count 4.23 X10*6/uL (4.20-5.50); White Blood Count 4.8 X10*3/uL (4.8-10.8)
[2024-11-21 16:51] LABS: Alanine Aminotransferase 23 U/L (0-31); Albumin Level 4.2 g/dL (3.5-5.0); Alkaline Phosphatase 61 U/L (39-117); Anion Gap 10 (12-20); Aspartate Amino Transferase 26 U/L (5-31); Blood Urea Nitrogen 12 mg/dL (9-16); Calcium 9.4 mg/dL (8.4-10.2); Carbon Dioxide 28 mmol/L (22-29); Chloride 106 mmol/L (96-108); Estimated Glomerular Filt Rate > 60; Potassium 4.0 mmol/L (3.3-5.1); Sodium 140 mmol/L (135-145); Total Protein 6.8 g/dL (6.5-8.0)
[2024-11-21 17:12] LABS: Resp Syncy Virus RNA Qual PCR NEGATIVE (Negative); SARS COV2 PCR INHOUSE NEGATIVE (Negative)
== END 2024-11-21 12:42 | disposition home or self-care (01) ==
LOC: HO.HMGCLDS 12:41
PROVIDERS: PCP Nurse Practitioner Family; Visit Provider Physician Assistant Medical
DX: J06.9 Acute upper respiratory infection, unspecified (principal); R11.2 Nausea with vomiting, unspecified; R19.7 Diarrhea, unspecified; R09.89 Other specified symptoms and signs involving the circulatory and respiratory systems; R53.83 Other fatigue; R42 Dizziness and giddiness; R51.9 Headache, unspecified; H53.8 Other visual disturbances
CPT/HCPCS: 36415; 80053; 81003; 85025; 87637

== ENCOUNTER 2024-12-06 06:43 | Outpatient (AMB) | payer OTHER, SELFPAY ==
--- OUTSIDE RECORDS SUMMARY | 2024-12-06 06:46 | XMS_ITS | Clinical Summary ---
Author Organization [facility] Address [address] [place] [address] Care Team Providers Care Commercial Loan Manager Name Role Phone Leandro Gomez Primary [...] uterine prolapse 07/02/2016 Overview (07/20/2018): Suspension in [place], [place]. Records do not indicate a specific [...] 2012 Zoster Vaccines (1 of 2) 02/07/2022 Alcohol/Substance Use Screening 04/05/2024 Depression Screening and Follow-Up 04/05/2024 Social Drivers of Health Annual Screening 04/05/2024 COVID-19 Vaccine (1 - season) 2024 Influenza Vaccine (#1) 2024 RSV Vaccine (60+ years old a nd patients) (1 - 1-dose 75+ series) 02/07/2047 Insurance [employer] Advance Directives Documents on File Type Date Recorded Patient Jet Worker Expl anation Health Care Proxy 02/10/2019 11:30 AM * Presumed Full Code (Latest Code Status on File) Date Activated Date Inactivated Comments 02/15/2019 2:23 PM 02/16/2019 8:16 PM * Full Code Date Activated Date Inactivated Comments 02/15/2019 1:01 PM 02/15/2019 2:23 PM Care Teams Commercial Loan Manager Relationship Specialty Start Date End Date Leandro Gomez [address] [place] [address] PCP - General 06/02/18
--- OUTSIDE RECORDS SUMMARY | 2024-12-06 06:46 | XMS_ITS | Patient Health Record ---
Author Organization [facility] Billing Info Address [address] [place], [place] [id number] Care Team Providers Care Angiography Technologist Name Role Phone LEONA GUEVARA Unavailable [phone] [facility], [facility] Unavailable Unavailable Reason For Referral No Information Plan Of Treatment No Information Insurance Providers Payer Name Payer Address Payer Phone Subscriber Number Group Number Insured Name Patient Relationship to Insured Coverage Start Date Coverage End Date [facility] [address] [address] [place], [place] [id number] [place] Self - patient is the insured 9
--- OUTSIDE RECORDS SUMMARY | 2024-12-06 06:46 | XMS_ITS | Clinical Summary ---
[facility] Address [address] [place] [address] Care Team Providers Care Traditional Chinese Herbalist Name Role Phone Ian Dumont MD Primary [...] Documents on File Type Date Recorded Patient Commercial Administrator Expl anation Health Care Decision (hx) 03/25/2017 AD FORREST DIRECTIVE Health Care Decision (hx) 03/25/2017 AD FORREST DIRECTIVE Health Care Decision (hx) 03/25/2017 AD FORREST DIRECTIVE Care Teams Traditional Chinese Herbalist Relationship Specialty Start Date End Date Ian Dumont MD PCP - General Internal Medicine 06/12/16
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
== END 2024-12-06 11:02 | disposition home or self-care (01) ==
LOC: HO.HMCC 06:43
PROVIDERS: PCP Nurse Practitioner Family; Visit Provider Nurse Practitioner Family
DX: M50.90 Cervical disc disorder, unspecified, unspecified cervical region (principal); G43.909 Migraine, unspecified, not intractable, without status migrainosus

== ENCOUNTER 2024-12-15 10:33 | Outpatient (REF) | payer OTHER, SELFPAY ==
--- NOTE | ~2024-12-15 | XR_ITS ---
EXAMINATION: XR CERVICAL SPINE CLINICAL INFORMATION: M54.2 - Cervicalgia COMPARISON: 12-30-23 TECHNIQUE: 2 views of the cervical spine were obtained. FINDINGS: The appearance of the cervical spine is unchanged with interbody fusion at C4-5-6. There is stable moderate degenerative changes at C2-3, C3-4, C6-7, and C7-T1 with mild anterolisthesis at C7-T1. XR/XR cervical spine 2V IMPRESSION: Stable cervical spine x-ray. Electronically signed by: Case Hill MD 12/15/2024 11:51 AM EDT
[2024-12-15 13:23] LABS: MANUAL DIFF FLAG NO
[2024-12-15 13:36] LABS: Hematocrit 38.0 % (37.0-47.0); Hemoglobin 12.6 g/dl (12.0-16.0); Imm Gran Abs Auto 0.01 X10*3/uL (0.00-0.03); Imm Gran Pct Auto 0.2 % (0.0-0.4); Lymphocytes Absolute Auto 1.2 X10*3/uL (1.2-4.9); Mean Corpuscular HGB Conc 33.2 g/dl (31.0-35.0); Mean Corpuscular Hemoglobin 31.6 pg (27.0-33.0); Mean Corpuscular Volume 95.2 fL (80.0-98.0); NRBC Abs Auto 0.000 X10*3/uL (0.0-0.012); NRBC Pct Auto 0.0 /100WBC (0.0-0.2); Platelet Count 228 X10*3/uL (160-400); Red Blood Count 3.99 X10*6/uL (4.20-5.50); White Blood Count 4.0 X10*3/uL (4.8-10.8)
[2024-12-15 13:43] LABS: Appearance Urine Clear; Glucose Urine UA Negative (Negative); PH 6.5 (5.0-9.0); Specific Gravity - Urine 1.020 (1.005-1.025)
[2024-12-15 14:17] LABS: Alanine Aminotransferase 25 U/L (0-31); Albumin Level 4.0 g/dL (3.5-5.0); Alkaline Phosphatase 64 U/L (39-117); Anion Gap 8 (12-20); Aspartate Amino Transferase 31 U/L (5-31); Blood Urea Nitrogen 12 mg/dL (9-16); Calcium 9.0 mg/dL (8.4-10.2); Carbon Dioxide 30 mmol/L (22-29); Chloride 107 mmol/L (96-108); Cholesterol 197 mg/dL (<200); Estimated Glomerular Filt Rate > 60; HDL Cholesterol 60 mg/dL (>40); Potassium 3.9 mmol/L (3.3-5.1); Sodium 141 mmol/L (135-145); Total Protein 6.7 g/dL (6.5-8.0); Triglycerides 59 mg/dL (<150)
== END 2024-12-15 10:34 | disposition home or self-care (01) ==
LOC: HO.HMGCX 10:33
PROVIDERS: PCP Nurse Practitioner Family; Visit Provider Internal Medicine
DX: Z00.01 Encounter for general adult medical examination with abnormal findings (principal); M54.2 Cervicalgia; R11.0 Nausea; G43.909 Migraine, unspecified, not intractable, without status migrainosus; Z98.890 Other specified postprocedural states; Z13.6 Encounter for screening for cardiovascular disorders; E55.9 Vitamin D deficiency, unspecified
CPT/HCPCS: 36415; 72040; 80053; 80061; 81003; 82306; 84443; 85025

== ENCOUNTER 2024-12-15 10:33 | Outpatient (AMB) | payer OTHER, SELFPAY ==
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
[2024-12-15 10:46] VITALS: BP 104/80; PULSE 87; TEMP 36.7; O2SAT 98; BMI 25.0
--- OUTSIDE RECORDS SUMMARY | 2024-12-15 12:11 | XMS_ITS | Clinical Summary ---
Author Organization [facility] Address [address] [place] [address] Care Team Providers Care Drill Press Set Up Operator Radial Name Role Phone Leandro Gomez Primary Care [...] uterine prolapse 07/02/2016 Overview (07/20/2018): Suspension in [place], [place]. Records do not indicate a specific [...] Documents on File Type Date Recorded Patient Sweatband Cutting Machine Operator Expl anation Health Care Proxy 02/10/2019 11:30 AM * Presumed Full Code (Latest Code Status on File) Date Activated Date Inactivated Comments 02/15/2019 2:23 PM 02/16/2019 8:16 PM * Full Code Date Activated Date Inactivated Comments 02/15/2019 1:01 PM 02/15/2019 2:23 PM Care Teams Drill Press Set Up Operator Radial Relationship Specialty Start Date End Date Leandro Gomez [address] [place] [address] PCP - General 06/02/18
--- OUTSIDE RECORDS SUMMARY | 2024-12-15 12:11 | XMS_ITS | Patient Health Record ---
Author Organization [facility] Billing Info Address [address] [place], [place] [id number] Care Team Providers Care Associate Dean Of Students Name Role Phone LEONA GUEVARA Unavailable [phone] [facility], [facility] Unavailable Unavailable Reason For Referral No Information Plan Of Treatment No Information Insurance Providers Payer Name Payer Address Payer Phone Subscriber Number Group Number Insured Name Patient Relationship to Insured Coverage Start Date Coverage End Date [facility] [address] [address] [place], [place] [id number] [place] Self - patient is the insured 9
--- OUTSIDE RECORDS SUMMARY | 2024-12-15 12:11 | XMS_ITS | Clinical Summary ---
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
== END 2024-12-15 11:05 | disposition home or self-care (01) ==
PROVIDERS: PCP Nurse Practitioner Family; Visit Provider Internal Medicine
DX: M54.2 Cervicalgia (principal); Z98.890 Other specified postprocedural states; G43.909 Migraine, unspecified, not intractable, without status migrainosus; R11.0 Nausea

== ENCOUNTER → 2024-12-15 11:15 | Outpatient (BNV) | payer OTHER, SELFPAY | PROVIDERS: PCP Nurse Practitioner Family; Visit Provider Radiology Diagnostic Radiology | DX: M54.2 Cervicalgia (principal) | CPT/HCPCS: 72040 ==

== ENCOUNTER 2025-01-02 11:23 | Outpatient (AMB) | payer OTHER, SELFPAY ==
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
[2025-01-02 11:28] VITALS: BP 110/78; PULSE 86; O2SAT 97; BMI 25.3
--- OUTSIDE RECORDS SUMMARY | 2025-01-02 12:53 | XMS_ITS | Clinical Summary ---
Author Organization [facility] Address [address] [place] [address] Care Team Providers Care Associate Professor Of Communication Name Role Phone Leandro Gomez Primary Care Provider [phone] Allergies Active Allergy Reactions Criticality Noted Date [...] uterine prolapse 07/02/2016 Overview (07/20/2018): Suspension in [place], [place]. Records do not indicate a specific [...] 1-dose 75+ series) 02/07/2047 Insurance [place] [address] Advance Directives Documents on File Type Date Recorded Patient Differential Tester Expl anation Health Care Proxy 02/10/2019 11:30 AM * Presumed Full Code (Latest Code Status on File) Date Activated Date Inactivated Comments 02/15/2019 2:23 PM 02/16/2019 8:16 PM * Full Code Date Activated Date Inactivated Comments 02/15/2019 1:01 PM 02/15/2019 2:23 PM Care Teams Associate Professor Of Communication Relationship Specialty Start Date End Date Leandro Gomez [address] [place] [address] PCP - General 06/02/18
--- OUTSIDE RECORDS SUMMARY | 2025-01-02 12:53 | XMS_ITS | Patient Health Record ---
Author Organization [facility] Billing Info Address [address] [place], [place] [id number] Care Team Providers Care Family And Marriage Counsellor Name Role Phone LEONA GUEVARA Unavailable [phone] [facility], [facility] Unavailable Unavailable Reason For Referral No Information Plan Of Treatment No Information Insurance Providers Payer Name Payer Address Payer Phone Subscriber Number Group Number Insured Name Patient Relationship to Insured Coverage Start Date Coverage End Date [facility] [address] [address] [place], [place] [id number] Arelis South Self - patient is the insured 9
--- OUTSIDE RECORDS SUMMARY | 2025-01-02 12:53 | XMS_ITS | Clinical Summary ---
Author Organization [facility] ity Address [address] [place] [address] Care Team Providers Care Mixing Machine Tender Cork Rod Name Role Phone Ian Dumont MD Primary [...] 5 season) 2024 Influenza Vaccine (#1) 2024 RSV Immunization Adult Patie nts (1 - 1-dose 75+ series) 02/07/2047 HIB Vaccines Aged Out No longer eligi [...] Documents on File Type Date Recorded Patient Chain Dyer Expl anation Health Care Decision (hx) 03/25/2017 AD FORREST DIRECTIVE Health Care Decision (hx) 03/25/2017 AD FORREST DIRECTIVE Health Care Decision (hx) 03/25/2017 AD FORREST DIRECTIVE Care Teams Mixing Machine Tender Cork Rod Relationship Specialty Start Date End Date Ian Dumont MD PCP - General Internal Medicine 06/12/16
== END 2025-01-02 12:21 | disposition home or self-care (01) ==
LOC: HO.HMCC 11:24
PROVIDERS: PCP Nurse Practitioner Family; Visit Provider Internal Medicine
DX: G47.00 Insomnia, unspecified (principal); G43.909 Migraine, unspecified, not intractable, without status migrainosus; R53.83 Other fatigue; M54.2 Cervicalgia; G89.29 Other chronic pain

== ENCOUNTER 2025-01-09 11:54 | Outpatient (AMB) | payer OTHER, SELFPAY ==
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
[2025-01-09 12:35] VITALS: BP 110/72; PULSE 88; TEMP 36.6; O2SAT 99; BMI 25.6
--- OUTSIDE RECORDS SUMMARY | 2025-01-09 14:58 | XMS_ITS | Clinical Summary ---
Author Organization [facility] it Address [address] [place] [address] Care Team Providers Care Sound Assistant Name Role Phone Ian Dumont MD Primary [...] Last Done Comments Breast Cancer Screening 1972 Colorectal Cancer Screening: Colonoscopy 1972 DTaP,Tdap,and Td Vaccines (1 - Tdap) 02/07/1991 Hepatitis B Vaccines (1 of 3 - 19+ 3-dose series) 02/07/1991 Cervical Cancer Screening: P ap Smear 02/07/1993 Pneumococcal Vaccine: 50+ Ye ars (1 of 1 - PCV) 02/07/2022 Zoster Vaccines (1 of 2) 02/07/2022 HIV Screening 03/18/2022 Hepatitis C Screening 03/18/2022 [...] Documents on File Type Date Recorded Patient Vp Of Marketing Expl anation Health Care Decision (hx) 03/25/2017 AD FORREST DIRECTIVE Health Care Decision (hx) 03/25/2017 AD FORREST DIRECTIVE Health Care Decision (hx) 03/25/2017 AD FORERST DIRECTIVE Care Teams Sound Assistant Relationship Specialty Start Date End Date Ian Dumont MD PCP - General Internal Medicine 06/12/16
--- OUTSIDE RECORDS SUMMARY | 2025-01-09 14:58 | XMS_ITS | Patient Health Record ---
Author Organization [facility] Billing Info Address [address] [place], [place] [address] Care Team Providers Care Seals Engraver Name Role Phone LEONA GUEVARA Unavailable [phone] [facility], [facility] Unavailable Unavailable Reason For Referral No Information Plan Of Treatment No Information Insurance Providers Payer Name Payer Address Payer Phone Subscriber Number Group Number Insured Name Patient Relationship to Insured Coverage Start Date Coverage End Date [facility] [address] [address] [place], [place] [id number] Arelis South Self - patient is the insured 9
--- OUTSIDE RECORDS SUMMARY | 2025-01-09 14:58 | XMS_ITS | Clinical Summary ---
Author Organization [facility] Address [address] [place] [address] Care Team Providers Care Customer Relations Advisor Name Role Phone Leandro Gomez Primary Care [...] uterine prolapse 07/02/2016 Overview (07/20/2018): Suspension in [place], [place]. Records do not indicate a specific [...] Documents on File Type Date Recorded Patient Manager Play Expl anation Health Care Proxy 02/10/2019 11:30 AM * Presumed Full Code (Latest Code Status on File) Date Activated Date Inactivated Comments 02/15/2019 2:23 PM 02/16/2019 8:16 PM * Full Code Date Activated Date Inactivated Comments 02/15/2019 1:01 PM 02/15/2019 2:23 PM Care Teams Customer Relations Advisor Relationship Specialty Start Date End Date Leandro Gomez [address] [place] [address] PCP - General 06/02/18
== END 2025-01-09 12:57 | disposition home or self-care (01) ==
PROVIDERS: PCP Nurse Practitioner Family; Visit Provider Internal Medicine
DX: M54.16 Radiculopathy, lumbar region (principal)

== ENCOUNTER → 2025-02-23 20:07 | Outpatient (BNV) | payer OTHER, SELFPAY | PROVIDERS: PCP Nurse Practitioner Family; Visit Provider Radiology Diagnostic Radiology | DX: M47.27 Other spondylosis with radiculopathy, lumbosacral region (principal); M99.63 Osseous and subluxation stenosis of intervertebral foramina of lumbar region | CPT/HCPCS: 72148 ==

== ENCOUNTER 2025-02-23 20:10 | Outpatient (REF) | payer OTHER, SELFPAY ==
--- OUTSIDE RECORDS SUMMARY | 2011-02-06 15:15 | XMS_ITS | Continuity of Care Document ---
Author Organization [facility] Address [address] [place] [address] Phone Care Team Providers Care Manager Contract Name Role Phone Ender Brice MD Unavailable Unavailable Allergies, Adverse Reactions, Alerts Substance Reaction Status Criticality amoxicillin Joint pain Active No Information Medications Medication Instructions Dosage Effective Dates (start - stop) Status Comments levothyroxine 125 mcg Cap take 1 capsule (125MCG) by oral route every day 125 MCG - Active Lyrica 150 mg Cap take 1 capsule (150MG) by oral route 2 times every day 150 MG - Active Tylenol PM 25 mg-500 mg/15 mL Oral Soln - Active Procedures Procedure Date Offic/outpt E&m [facility] Advance Directives Directive Yes / No Effective Date File Name No Information Encounters Encounter Description Practice Location Reason(s) For Visit Diagnoses Date Provider Providers Copied on Encounter [facility], [address], [place], [place], [id number], [place] tel:[phone] [facility] No Information 1 Babs Handley. [address] [place] [address], [address], [place]. tel:[phone] Offic/outpt E&m [facility], [address], [place], [place], [id number], [place] tel:[phone] [facility] No Information 1 No Information Family History Family Member Type Diagnosis Age At Onset Sibling Problem (finding) Diabetes mellitus Father Problem (finding) Family history of hyper tension Payers Payer name Insurance type Covered libertarian ID Misti fuller(s) No Information Social History Type Description Quantity Date Captured Comments Alcohol Use Details Caffeine Use Details Unknown Tobacco Use Status No Information Smoking Status No Information Sex Female Vital Signs Date / Time: Height Weight BMI Pulse Rate Blood Pressure Temperature Respiratory Rate Body Surface Area Head Circumference Head Circ. Percentile Wt./Rah. Percentile BMI percentile Pulse Ox Inhaled Ox 8:27 PM 68.00 in 99.770 kg (220.00 lbs) 33.4 5 kg/m eter (2) 81 /min 122/82 mm[Hg] 98.10 F 18 /min 95 % Chief Complaint And Reason For Visit No Information Reason For Referral Reason For Referral No Information History Of Present Illness Encounter Date Complaint History Of Prese nt Illness No Information Functional Status Date Functional Assessmen t No Information Instructions Date Instruction Additional Infor mation No Information Assessments Type Assessment Date No Information Patient Care Teams Name Effective Dates (start - stop) Status Members No Information
--- OUTSIDE RECORDS SUMMARY | 2011-02-11 05:40 | XMS_ITS | Continuity of Care Document ---
Author Organization [facility] Address [address] [place] [address] Phone Care Team Providers Care Sinter Press Operator Name Role Phone Garrett Burgos MD Unavailable Unavailable Advance Directives Directive Yes / No Effective Date File Name No Information Encounters Encounter Description Practice Location Reason(s) For Visit Diagnoses Date Provider Providers Copied on Encounter [facility] , [address] [place] [address], [facility], tel:[phone] [facility] No Information [facility] Tucker. [address] [place] [address], [facility], . tel:[phone] Referring Provider: Garrett Burgos MD, [address] [place] [address], [facility]. tel:[phone] Family History Family Member Type Diagnosis Age At Onset No Information Payers Payer name Insurance type Covered constitution party ID Authoriza tion(s) [facility] CI [id number] Social History Type Description Quantity Date Captured Comments Sex Female Smoking Status No Information Chief Complaint And Reason For Visit No [...]
--- NOTE | ~2025-02-23 | MR_ITS ---
CLINICAL HISTORY: M54.16 - Radiculopathy, lumbar region MR lumbar spine without gadolinium Comparison: None Findings: No scoliosis or spondylolisthesis. No acute fracture or pathologic bone lesion. Endplate degenerative/Modic changes at L3-L4, L4-L5 and L5-S1. Cauda equina and conus medullaris within normal limits. L1-L2: Disc bulge and bilateral facet arthropathy with mild bilateral neural foraminal stenosis. L2-L3: Disc bulge and bilateral facet arthropathy causing mild spinal canal and mild bilateral neural foraminal stenosis. L3-L4: Disc bulge, bilateral facet arthropathy and ligamentum flavum hypertrophy causing mild spinal canal and mild left neural foraminal stenosis. L4-L5: Mild left neural foraminal stenosis. L5-S1: Disc bulge and bilateral facet arthropathy with moderate left neural foraminal stenosis. Peripheral disc bulge contacts both exiting S1 nerve roots. Fatty atrophy of the lower paraspinal muscles. IMPRESSION: 1. Multilevel degenerative changes in the lumbar spine, most pronounced at L5-S1 with moderate left neural foraminal stenosis and disc bulge contacting both exiting S1 nerve roots. 2. Mild spinal canal stenosis at L2-L3 and L3-L4. 3. Mild to moderate neural foraminal stenosis at multiple levels. This document has been electronically signed by: Demarcus Fuentes MD on 02/26/2025 18:48:23
--- OUTSIDE RECORDS SUMMARY | 2025-02-23 20:14 | XMS_ITS | Clinical Summary ---
Author Organization [facility] Address [address] [place] [address] Care Team Providers Care Orthotist Or Prosthetist Name Role Phone Leandro Gomez Primary Care [...] uterine prolapse 07/02/2016 Overview (07/20/2018): Suspension in [place], [place]. Records do not indicate a specific [...] Annual Screening 04/05/2024 Influenza Vaccine (#1) 2024 COVID-19 Vaccine ( - season) 2024 Insurance [employer] Advance Directives Documents on File Type Date Recorded Patient Automation Engineering Manager Expl anation Health Care Proxy 02/10/2019 11:30 AM * Presumed Full Code (Latest Code Status on File) Date Activated Date Inactivated Comments 02/15/2019 2:23 PM 02/16/2019 8:16 PM * Full Code Date Activated Date Inactivated Comments 02/15/2019 1:01 PM 02/15/2019 2:23 PM Care Teams Orthotist Or Prosthetist Relationship Specialty Start Date End Date Leandro Gomez [address] [place] [address] PCP - General 06/02/18
== END 2025-02-23 20:11 | disposition home or self-care (01) ==
LOC: HO.MRI 20:10
PROVIDERS: PCP Nurse Practitioner Family; Visit Provider Nurse Practitioner Family
DX: M54.16 Radiculopathy, lumbar region (principal)
CPT/HCPCS: 72148

== ENCOUNTER 2025-03-26 12:34 | Outpatient (REF) | payer OTHER, SELFPAY ==
[2025-03-26 17:18] LABS: Resp Syncy Virus RNA Qual PCR NEGATIVE (Negative); SARS COV2 PCR INHOUSE NEGATIVE (Negative)
== END 2025-03-26 12:35 | disposition home or self-care (01) ==
LOC: HO.LAB 12:34
PROVIDERS: PCP Nurse Practitioner Family; Visit Provider Nurse Practitioner Family
DX: J06.9 Acute upper respiratory infection, unspecified (principal); R09.89 Other specified symptoms and signs involving the circulatory and respiratory systems
CPT/HCPCS: 87637

== ENCOUNTER 2025-03-26 12:34 | Outpatient (AMB) | payer OTHER, SELFPAY ==
[2025-03-26 13:04] VITALS: BP 118/80; PULSE 79; O2SAT 100; BMI 27.0
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
--- OUTSIDE RECORDS SUMMARY | 2025-03-26 15:43 | XMS_ITS | Patient Health Record ---
Author Organization [facility] Billing Info Address [address] [place] [address] Phone [phone] Care Team Providers Care Prism Measurer Name Role Phone LEONA GUEVARA MD Unavailable [facility], [facility] Unavailable Unavailable Reason For Referral No Information Social History Sex Observation Social History Observation Description Sex Observation Female Social History Social History Social Info Question Answer Notes Tobacco Status: Patient is a never smoker Illicit Drug Use: Patient/Family reports: No illicit d rug use Alcohol Use: Patient does not use alcohol Living Environment: Reported as: House/Condo/Apartment Plan Of Treatment No Information Insurance Providers Payer Name Payer Address Payer Phone Subscriber Number Group Number Insured Name Patient Relationship to Insured Coverage Start Date Coverage End Date [facility] [address] [address] [place], [place] [id number] Arelis South Self - patient is the insured 9
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
--- OUTSIDE RECORDS SUMMARY | 2025-03-26 15:43 | XMS_ITS | Clinical Summary ---
Author Organization [facility] Address [address] [id number] Care Team Providers Care Power Wood Sawyer Name Role Phone Leandro Gomez Primary Care [...] uterine prolapse 07/02/2016 Overview (07/20/2018): Suspension in [place], [place]. Records do not indicate a specific [...] Documents on File Type Date Recorded Patient Income Tax Administrator Expl anation Health Care Proxy 02/10/2019 11:30 AM * Presumed Full Code (Latest Code Status on File) Date Activated Date Inactivated Comments 02/15/2019 2:23 PM 02/16/2019 8:16 PM * Full Code Date Activated Date Inactivated Comments 02/15/2019 1:01 PM 02/15/2019 2:23 PM Care Teams Power Wood Sawyer Relationship Specialty Start Date End Date Leandro Gomez [address] [place] [address] PCP - General 06/02/18
== END 2025-03-26 15:16 | disposition home or self-care (01) ==
PROVIDERS: PCP Nurse Practitioner Family; Visit Provider Nurse Practitioner Family
DX: J06.9 Acute upper respiratory infection, unspecified (principal)